=== PATIENT | male | born 1955 | race Caucasian/White ===

== ENCOUNTER 2017-06-10 16:52 | Inpatient (IN) | payer OTHER ==
[~2017-06-10] VITALS: Ht 175.3 cm; Wt 65.5 kg
[2017-06-10 17:13] VITALS: BP 116/65
--- NOTE | 2017-06-10 18:55 | IP CRISIS DIAG ASSESS PSYCH ---
See Addendum Diagnostic Assessment Basic Assessment Insurance Authorization: Insurance #1: Insurance name: CARLOS CANTOR Phone number: Policy number: [id number] Group number: Authorization number: [id number] 3 days 06/10/17-06/12/17 Primary Care Physician: Patient's PCP: Unknown PCP's Phone Number: Patient's Quote: "I'm done" Present Illness: Pt is a 61 yo male presenting to [facility] on Friday 06/09 with suicidal ideation to walk in front of a train and placed on a PEC. Pt was transfered to [facility] on 06/10 for a direct admission to [facility]. Pt reports he has been depressed for a long time. Unclear prior inpatient psychiatric hisory as pt reported to [facility] prior inpatient hospitalization but denied to this tech writer. Pt reports prior suicide attempt by drinking drano. Pt reports struggling with homelessness past 3 months and residing at [facility] since around [place]. Pt reports he worked in the [employer] for 36 yrs but was let go 3 yrs ago and since then hasn't been able to find any steady employment. Pt reports exhausting his 401k, IRAs and savings accts about 1 yr ago. He reports he was able to live with a friend for a [place] in the [place] but felt he was becoming too much of a burden and moved out. He reports then briefly living in his brother's garage in [place] until going to [facility] in March. He reports it is a dehumanizing experience and has significantly impacted his sense of hopelessness. Pt reports occasional etoh use and denies substance use. Pt reports beginning outpatient tx at [facility] 2 months ago and finds it helpful. He denies current medications and reports he generally is hesitant to take medications because of prior bad experiences. He was only able to identify predisone as a medication that gave him side effects (chest pain, anxiety). Pt reports he has been for many yrs and has no children. He reports having 3 brothers and 2 sisters as well as his mother but has minimal contact with them. He reports no arrest history. Pt presents as calm, cooperative, thoughtful and OX3. Patient's Address: [address] [place] [address] Other Phone Number: Who Do You Live With? Other (see notes) (homeless/[facility]) Feel Safe Where You Live? No Feel Safe in Your Relationship Yes Marital Status: Do You Have Children? No Primary Language? Slovak Language(s) Spoken At Home: Slovak Family/Informants Interviewed: collateral provided by Bert at [facility] [phone]. Consequences of Psych Med Use: pt reports no current medications. pt reports generally resistant/hesitant to taking medications. Lab Results: negative bal and urine tox screen Toxicology Screen Completed? Yes Results: negative Symptoms of Use: occasional beer; denies substances Past History Abuse/Trauma History Trauma History/Current Trauma: Denies Legal History Current Legal Status: none Have you ever been arrested? No Number of Arrests: 0 Psychosocial History Strengths/Capabilities: 36 yrs working in [employer] ; no prior inpatient psych hx; hx of independent housing. Psychiatric Treatment History Psych Treatment Psychiatric Treatment Yes Inpatient Treatment No (pt denies) Outpatient Treatment Yes Location of Treatment [facility] Reason for Treatment depression Dates of Treatment past 2 months Response to Treatment pt reports positive experience with SW Diagnosis by History: Depression Risk Factors: chronic/serious med cond., high anxiety/distress, isolate/no social support, lack of outcome concern, lives alone, male, limited support Substance Use/Abuse History Drug Use/Abuse minimum 12mo Hx Substances Used/Abused No Substance Abuse Treatment Substance Abuse Treatment Past Substance Abuse TX No Inpatient Treatment No Outpatient Treatment No Comments: pt reports occasional beer; denies substances Education History Highest Level of Education: high school/GED Preferred Learning Style: visual, auditory, experiential Current Mental Status Mental Status Orientation: Person, Place, Situation Affect: Depressed Speech: WNL Neuro-vegetative: Energy Decreased, Helpless, Hypersomnia Appearance Appearance- Dress/Hygiene: hospital scrubs; poorly groomed/disheveled. Behaviors Thought Process: WNL Thought Content: WNL Memory: WNL Insight: Fair SI/HI Risk Assessment - Minimum 6mo History- Past Suicidal Ideation/Attempts Yes Current Suicidal Ideation/Att Yes Past Homicidal Ideation/Att: No Current Homicidal Ideation/Attempts No Degree of Intent: Thoughts/No Intent Danger To: Self Gravely Disabled: Poor Impulse Control Risk Factors: chronic/serious med cond., high anxiety/distress, history of suicide atmpts, isolate/no social support, poor impulse control, lack of outcome concern, male, limited support Lethality Ratin Needs/Init TX Plan/Goals: Psychiatric Evaluation Medication Assessment Individual, group and family meetings Coordinated discharge planning AUDIT-C Questionnaire: AUDIT-C Questionnaire: Response Value ETOH use in the past year 2-4 times/month 2 # drinks typical/day 1 or 2 0 6 or > drinks per occasion Never 0 Total 2 DSM5/PS Stressors/Medical Prob Diagnosis' (DSM 5, Stressors, Medical): Unspecified Depression (F32.9) homeless unemployed financial progressive cataracts Current GAF: 20 Comments: Pt reports worsening depression past few months since becoming homeless; Pt reports recent thoughts of standing on the train tracks; pt reports feeling hopeless, helpless and worthless Addendum Addendum Case has been reviewed with Dr Whitehead. Due to computer issues she is not able to sign off at this time but will as soon as possible.
[2017-06-10 19:55] VITALS: BP 104/79
[2017-06-11 07:47] VITALS: BP 124/69
--- NOTE | 2017-06-11 09:13 | CPS PROVIDER INIT ASMT PSYCH ---
Psychiatric Admission Junior Account Manager's Note Reviewed: Yes Patient Seen and Examined: Yes Identifying Information: Pt is a 61 yo male presenting to [facility] on Friday 06/09 with suicidal ideation to walk in front of a train and placed on a PEC. Chief Complaint: Thoughts of suicide, pt was transfered to [facility] on 06/10 for a direct admission to [facility]. Pt reports he has been depressed for a long time. Reaction to Hospitalization: The patient did not seem to mind the hospitalization. History of Present Illness Onset of Illness: Pt reports he has been depressed for a long time. Unclear prior inpatient psychiatric hisory as pt reported to [facility] prior inpatient hospitalization but denied to this writer technical publications. Pt reports prior suicide attempt by drinking drano. Pt reports struggling with homelessness past [address] [facility] since around [place]. Pt reports he worked in the [employer] for 36 yrs but was let go 3 yrs ago and since then hasn 't been able to find any steady employment. Pt reports exhausting his 401k, IRAs and savings accts about 1 yr ago. He reports he was able to live with a friend for a while in the [place] but felt he was becoming too much of a burden and moved out. He reports then briefly living in his brother's garage in [place] until going to [facility] in March. He reports it is a dehumanizing experience and has significantly impacted his sense of hopelessness. Circumstances Leading to Admission: Patient presented [facility] emergency department reporting that he was having thoughts of suicide Problem(s) Justifying Need for Admission: Thoughts of suicide Past Psychiatric History Past Diagnosis(es)- if any: He reported that he was never on psychiatric medications. He reported that he may have had suicide attempts in the late , he does not remember the details. It is not clear whether the patient has received a formal psychiatric diagnoses in the past or not. Past Precipitating Factors- if any: Homelessness, unemployment, poverty - Include inpatient and outpatient treatment Treatment History: The patient reported that he did receive some outpatient therapy recently at [facility] in [place] He reported that he may have been hospitalized at [facility] in the late . For a suicide attempt History of Suicide Attempts or Gestures The patient was vague and not clear, he reports that he did not remember whether it was a suicide attempt or not but it was once and it was in the late 1980s Substance Abuse History: The patient denied abusing alcohol or using illicit substances Allergies: Coded Allergies: prednisone (Intermediate, claims to have had chest pain and anxiety 06/11/17) Home Med List: None - Include any medical condition(s) that may - impact the patient's recovery/remission Past Medical History: Denied major medical issues Past History Medical History Neurological: NONE EENT: NONE Cardiovascular: NONE Gastrointestinal: NONE Hepatic: NONE Renal: NONE Musculoskeletal: NONE Psychiatric: depression Endocrine: NONE Blood Disorders: NONE Cancer(s): NONE History of MRSA: No History of VRE: No History of CDIFF: No Pneumonia Vaccine Status: Unknown if ever received Influenza Vaccine Status Unknown if ever received Surgical History Surgical History: none Psychiatric Family/Social Hx Family History Psychiatric Illness: The patient reported that his sister has bipolar disorder Substance Use: The patient denied there is alcoholism or substance use in the family Suicides: Denied any suicides among his blood relations Social History Living Situation: The patient has been homeless and staying with friends for the past 6 years or so Significant Relationships (family/friends): Father is , he has been minimal interaction with his family of origin, he has been staying with friends on and off Education: High school diploma Vocation/Occupation: Currently unemployed, he last worked about 4 years ago Legal: No current legal entanglements Healthly Behaviors Screening Tobacco Screening Tobacco Use from ED Docu: Current Daily Use Daily Tobacco Use Amount/Type: => 5 Cigarettes daily - If tobacco counseling indicated - the following topics are required. - #1 Recognizing dangerous situations. - #2 Coping Skills. - #3 Basic information about quitting. Status of Tobacco Cessation Counseling: Counseling Refused Cessation Med Status Pt Refused Cessation Meds Alcohol Screening - ETOH screen POS if BAL >=80 or Audit-C>= M4/F3 Audit-C Score from Diag Assess: 2 Blood Alcohol Level: The patient came as a direct admission from [facility] current blood alcohol level unknown Alcohol Use Screening Results: Neg per Audit C &/or BAL - If ETOH counseling indicated - the following topics are required. - #1 Express concern about the patient's - drinking at unhealthy levels, include informing - of national norms for moderate drinking: - men <= 14 drinks/week, max 4 drinks/occasion - women <= 7 drinks/week, max 3 drinks/occasion - #2 Providing feedback, including linking alcohol to - negative physical effects (liver injury, hypertension) - negative emotional effects (relationship problems and - depression) - negative occupational consequences (reduced work - performance) - #3 Advising the patient to abstain from alcohol or - to drink below national norms for moderate drinking - (as listed above). Status of ETOH Use Counseling: N/A B/C NO ETOH Use Metabolic Screening - Screen if on a Neuroleptic Medication - Metabolic screening should include: - Blood Pressure, BMI, Glucose or Hgb A1c, & a - Lipid profile from within the past 365 days. Metabolic Screening ([X]) Not Applicable, patient not on a neuroleptic. OR () Patient on a neuroleptic(s) . Enter below results for Hemoglobin A1C, and lipid panel if obtained during the last 365 days. BMI: Blood Pressure: 124/69 Laboratory Results From [facility] (If applicable): Exam and Plan Mental Status Examination Ambulation Status: The patient had a steady gait Appearance: Unremarkable Attitude towards examiner: Cooperative and calm, at one point became irritable Psychomotor activity: Normal psychomotor activity Behavior: No abnormal or bizarre behaviors Quality of speech: Normal speech, not pressured, not slurred Affect: Constricted affect Mood: Depressed Suicidal Ideation: Reported thoughts of suicide today Homicidal Ideation: Denied thoughts of homicide Hallucinations: He denied hallucinations Paranoid/Delusional Material: He denied feeling paranoid. There were no delusions during the interview. Difficulties with thought organization: The patient was coherent, there were no difficulties with thought organization during the interview Insight: He seemed to have reasonable insight Judgment: He seems to have reasonable judgment Orientation: He was alert and oriented to time place and person Cognition: There were no deficits in attention and concentration. Memory Function: There were no short-term memory deficits noted Estimate of intellectual functioning: Average Assets/Strengths Patient Identified Assets/Strengths: The patient's seems to be honest and likable Impression/Plan Impression and Plan: 61-year-old white male who was transferred from [facility] for voicing thoughts of suicide. The patient has been homeless for the past 2-3 months. He has been staying at [facility]. It seems that he does not have significant psychiatric history, however he reported that he had 1 suicide attempt. Currently he reports feeling depressed but does not want medications at this point, he also reports that he is feeling hopeless about his life and he is still having some thoughts of suicide - Include all active medical diagnosis that require tx DSM 5 Diagnosis(es): Unspecified depressive disorder, most likely adjustment disorder with mixed anxiety and depression - Initial Tx Plan for Active Psych & Medical Conditions Treatment Plan: Inpatient psychiatric care with safety checks every 15 minutes Nursing and nurse's aids: Vital signs nursing assessments, dispensing medications, providing education about medication and symptoms Social work staff: Collateral information and aftercare plans/discharge plans Group therapists and activity therapists: Group and activity therapy and milieu therapy Psychiatrist: To assess patient's mental status on a daily basis and monitor medications including effects and side effects - Factors that would help patient function - in a less restrictive setting. Factors: Stable housing
[2017-06-11 11:55] VITALS: BP 105/62
--- NOTE | 2017-06-11 11:58 | History & Physical ---
General Information and HPI MD Statement: I have seen and personally examined SHRUTHI TURNER and documented this H&P. The patient is a 61 year old M who presented with a patient stated chief complaint of SI, depression. Source of Information: patient Exam Limitations: no limitations History of Present Illness: 61-year-old male with remote history of hypertension but did not take any medications, depression who was admitted to Inpatient Psychiatry with suicidal ideation and worsening depression. Patient has been out of employment from last 3 years and has been struggling with his financial situation. He is also homeless from last 3 months and has been staying in a halfway in [place]. Off -and-on he stayed with a friend but it is no permanent place for him to live. He's having difficult financial situation these days. He denies any aches or pains. Did mention that he's having some urinary urgency and weak stream of the urine. Denies any burning. Denies any pain. Denies any nausea, vomiting, diarrhea but did complain of some constipation. Does not want to take any stool softeners. Patient did want to hurt himself by coming in front of the train. He has had history of suicidal attempts in the past. Allergies/Medications Allergies: Coded Allergies: prednisone (Intermediate, claims to have had chest pain and anxiety 06/11/17) Past History Medical History Neurological: NONE EENT: NONE Cardiovascular: hypertension Gastrointestinal: NONE Hepatic: NONE Renal: NONE Musculoskeletal: NONE Psychiatric: depression Endocrine: NONE Blood Disorders: NONE Cancer(s): NONE History of MRSA: No History of VRE: No History of CDIFF: No Pneumonia Vaccine Status: Unknown if ever received Influenza Vaccine Status Unknown if ever received Surgical History Surgical History: none Past Family/Social History Family History Relations & Conditions if any MOTHER Relation not specified for: FH: stroke Review of Systems Review of Systems Constitutional: Reports: see HPI. EENTM: Reports: see HPI. Cardiovascular: Reports: see HPI. Respiratory: Reports: see HPI. GI: Reports: see HPI. Genitourinary: Reports: see HPI. Musculoskeletal: Reports: see HPI. Neurological/Psychological: Reports: see HPI. Exam & Diagnostic Data Last 24 Hrs of Vital Signs/I&O Vital Signs Date Time Temp Pulse Resp B/P B/P Pulse O2 O2 Flow FiO2 Mean Ox Delivery Rate 06/11 0747 90 124/69 06/10 1954 98.7 88 104/79 06/10 1713 98.7 87 116/65 Intake & Output 06/11 1600 06/11 0800 06/11 0000 Intake Total Output Total Balance Patient 145 lb Weight Physical Exam General Appearance Alert, Oriented X3, Cooperative, No Acute Distress Skin No Rashes HEENT PERRLA Neck Supple Cardiovascular Regular Rate, Normal S1, Normal S2 Lungs Clear to Auscultation Abdomen Normal Bowel Sounds, Soft, No Tenderness Neurological Cranial Nerves II through XII: intact Extremities No Edema Last 24 Hrs of Labs/Duong: No labs are done yet. Assessment/Plan Assessment: 61-year-old male with remote history of hypertension but not on any medications and currently blood pressure stable, history of depression admitted to Inpatient Psychiatry with suicidal ideation and a plan as well as worsening depression. Patient did have some urinary issues. I will check a urinalysis. I will also check his basic blood work. I will leave the psych management per psychiatry. Patient did not want to take any stool softeners at this time. He was encouraged to take more fiber. We will follow-up on his blood work. As Ranked By This Provider Problem List: 1. Depression 2. Suicidal ideation Miscellaneous Miscellaneous Documentation Attending Case Discussed With: Ellie Vasquez MD. Primary Care Physician: Unknown Patient sees these Specialists none Level of Patient Care: TEZ Herron
[2017-06-11 15:50] VITALS: BP 99/61
--- NOTE | 2017-06-11 15:55 | SOCIAL WORKER PROG NOTE PSYCH ---
Social Work Progress Note Progress Note Nirav reports being homeless and living at [facility] for the past 3 months. Prior to that he has a hx of staying with friends and with his Mother. That changed when his Mother sold the house and moved to [place] with his sister. He stated that the opportunity changed to stay with friends once he ran out of money. He has exhausted fdc savings and any other funds he may have had due to working in the past. He was in the [employer] business for 36 years. He hasn't worked in 4 years. He feels depressed and very hopeless about things. He said he has had depression for years. He reported 1 suicide attempt at least 20 years ago when he ingested Draino. He denies other attempts, but reports he has come close. Prior to admission he was having thoughts to jump on the train tracks. He was by the tracks and stated he then heard a voice that said "are you sure about that." He said he wasn't and decided to then get himself to the hospital. He isn't sure if it was someone he heard or a voice that came from within his head. He reports that he just can't see the future for himself anymore or feel motivated towards working on anything because he just doesn't see the point. He is currently connected to [facility] in [place]. He was seeing a clinician named Christiana for the past month- month and a half. He has been against taking medications, stating he has had bad experiences with medications in the past for different things. This is his first psychiatric hospitalization. I told him that he really should consider medication while he is here and that this is the best place to do that due to the monitoring and availability of the nurses and doctors. He denies any substance use and states that has never really been something he enjoys. He seems too prideful to involve his family in what is going on. He said several times that he is almost 62 years old and should be able to handle this. He said they don't know he's in the hospital and he doesn't want to involve them. I asked what his goal of being here was? He said "I need help." I told him that we would definetely assist him with helping his mood and SI. I shared that there are not many options for housing and he may need to return to a senior care situation. He stated he wasn't here because of that.. but then later stated he was not going to return to the street and that he couldn't do that.
[2017-06-11 16:23] LABS: ABSOLUTE BASOPHIL COUNT 0 /CUMM (0.0-0.2); ABSOLUTE EOSINOPHIL COUNT 0.5 /CUMM (0.0-0.7); ABSOLUTE LYMPH COUNT 1.7 /CUMM (1.2-3.4); ABSOLUTE MONOCYTE COUNT 1.2 /CUMM (0.10-0.60); BASOPHIL % 0.4 % (0.0-2.0); EOSINOPHIL % 4.6 % (0-5); GRANULOCYTE % 67.4 % (42.2-75.2); HEMATOCRIT 36.5 % (42-52); MEAN CORPUSCULAR HGB 32.5 PG (27.0-31.0); MEAN CORPUSCULAR VOLUME 98.6 FL (80.0-94.0); MEAN PLATELET VOLUME 8.4 FL (7.4-10.4); PLATELET COUNT 315 /CUMM (130-400); RBC DISTRIBUTION WIDTH 14.8 % (11.5-14.5); WHITE BLOOD CELL COUNT 10.4 /CUMM (4.8-10.8)
--- NOTE | 2017-06-11 18:39 | SOCIAL WORKER SOCIAL HX PSYCH ---
Florence Egan 06/11/17 1829: Social History Basic Assessment Insurance Authorization: Insurance #1: Insurance name: [employer] Phone number: Policy number: [id number] Group number: Authorization number: Curr Source of Income/Entitlements: No source of income Primary Care Physician: Patient's PCP: Unknown PCP's Phone Number: Present Problem: The pt is a 61 year old male presenting in the inpatient unit due to + si. Pt reports he has been depressed for sometime and the symptoms have progressively worsened. The pt states he has a plan to jump in front of a train and will do so if discharged from hospital. The pt presents disheveled in hospital scrubs, with depressed mood and affect, the pt's speech was soft, and thoughts tangential. The pt required redirection to answer questions but was calm and cooperative. The pt reports +SI/AH/VH and denies HI. The pt reports he sometimes hears a woman's voice asking "are you sure about this", see's people out of the corner of his eye who are never there, and sometimes sees his father. The pt reports long hx of depression, denies mental health tx despite medical records from prior day. The pt reports his stressors include no income, lack of family supports, and being homeless. The pt states that he feels hopeless but has agreed to participate in groups and does want to feel better. Primary Language? Nepali Language(s) Spoken At Home: Nepali Living Situation Other Living Arrangement: homeless in correction Feel Safe Where You Are Living No Feel Safe in Relationships? Yes Allergies - Coded Allergies: prednisone (Intermediate, claims to have had chest pain and anxiety 06/11/17) Consequences of Psych Med Use: Pt reports no hx of psychotropic medication Past History Past Medical History Neurological: NONE EENT: NONE Cardiovascular: hypertension Gastrointestinal: NONE Hepatic: NONE Renal: NONE Musculoskeletal: NONE Psychiatric: depression Endocrine: NONE Blood Disorders: NONE Cancer(s): NONE /Family History Place/Country of Origin: [place], [place] Childhood Family Constellation: Pt lived with Mother, Father, 3 brothers and 2 sisters Primary Childhood Caretakers: Pt reports no caregiver and states "I was always independent" Family Life During Childhood: "normal" DCF Involvement? No Mother's Age (Current/): 84 Relationship w/Mother: Pt reports he used to have a positive relationship with mom and states they are no longer close due to a "falling out" Father's Age (Current/): 68 () Relationship w/Father: "very close" Any Sibling(s)? Yes Sibling's Gender(s)/Age(s): male Sibling 1: (61 - Twin), male Sibling 2: (61 - Twin), male Sibling 3: (53), female Sibling 4: (57), female Sibling 5: (55) Relationship w/Sibling(s): "I dont have one, they don't know I am here" Relationship w/Friends: Pt reports he does not have any friends Family Psych/Sub Abuse/Add Hx: drug of choice Other Comments: Pt reports his sister struggled with substance abuse and maternal aunt struggled with alcohol Abuse/Trauma History Trauma History/Current Trauma: Denies Legal History Legal Guardian/Address/Phone: n/a Current Legal Status: none Pending Court Dates: n/a Have you ever been arrested No Number of Arrests: 0 Hx of Juvenile Legal Charges? Yes If Yes: trespassing, no charges Hx of Adult Legal Charges? No Civil Proceedings: n/a Domestic Relations Court: n/a Child Protective Serv Involvmnt n/a Payroll Accounting Specialist n/a Psychosocial History Primary Support System: mother Strengths/Capabilities: 36 yrs working in [employer] ; no prior inpatient psych hx; hx of independent housing. Weaknesses: limited supports, no current housing or income Physical Limitations (Interventions): n/a Last Physical: unknown History of Seizures? No History of Blackouts? No ADL Limitations: n/a Colbert/Social/Peer Relations pt denies any social relationships Meaningful Activities: Pt denies any hobbies or interests. Pt reports in the past he enjoyed being outside, time with family, and music Childhood Druze: Jewish Current Synagogue Affiliation: Jewish Is Spirituality Important to You? Pt reports spirituality is important and states he would like to return to cheondoism Patient's Ethnicity: Kiswahili, Qatari, Kiswahili Cultural/Ethnic Issues: n/a Are There Developmental Issues? No Milestones Achieved: fine motor, gross motor Psychiatric Treatment History Psych Treatment Inpatient Treatment No (pt denies) Outpatient Treatment Yes Location of Treatment [facility] Reason for Treatment depression Dates of Treatment past 2 months Response to Treatment pt reports positive experience with SW Precipitating Factors: unknown Current Rib Cutter: [facility] Treatment of Prior Episodes: past 2 months Diagnosis: Depression Psychodynamic Issues: PT lost his job, is homeless, no income, and has little supports Risk Factors: chronic/serious med cond., high anxiety/distress, history of suicide atmpts, isolate/no social support, poor impulse control, lack of outcome concern, male, limited support Substance Use/Abuse History Drug Use/Abuse Substance Used/Abused Alcohol First Use 15 Last Used unknown How much used/taken pt reports social drinker, details unknown How often "now and then, when I wanted to" For how long unknown Route of use oral Have Had Periods of Sobriety? No Explain: pt denies substance abuse Relapse History? No Explain: pt denies substance abuse Have You Ever Attended AA? No Do You Attend AA Currently? No Do You Have a Sponsor? No Other Community Resources Used: n/a Symptoms of Use: occasional beer; denies substances Substance Abuse Treatment Substance Abuse Treatment Inpatient Treatment No Outpatient Treatment No Sexual History Sexually Active No Sexual Orientation Heterosexual Education History Highest Level of Education: high school/GED Highest Grade Completed: high school Vocational Year Completed: n/a College Degree/Major: n/a Other Degree(s): n/a Preferred Learning Style: visual, auditory, experiential HX of Learning Difficulties: None reported Barriers to Learning: None reported Special Communication Needs: None reported Employment History Employment Unemployed Not in Labor Force: Disabled Vocation/Occupational Hx: 36 years in the [employer] No. of Jobs in Last 5 Years: 1 Attendance: Above average Performance: Exemplary Comments: pt reports working at [employer] over the past 36 years. The pt reports he enjoys his job and has always been a valuable employee. Pt reports unfair severance from last job and feels it was unjust. History Have You Been in The ? No Current Mental Status Problem List: 1. Depression 2. Suicidal ideation Mental Status Orientation: Person, Place, Situation Affect: Depressed Speech: WNL Neuro-vegetative: Concentration Poor, Energy Decreased, Helpless, Hypersomnia, Loss of Interest Appearance Appearance- Dress/Hygiene: hospital scrubs; poorly groomed/disheveled. Behaviors Thought Process: Tangential Thought Content: Auditory Hallucinations, Visual Hallucinations Memory: WNL Insight: Poor SI/HI Risk Assessment Past Suicidal Ideation/Attempts Yes Current Suicidal Ideation/Att Yes Past Homicidal Ideation/Att: No Current Homicidal Ideation/Attempts No Degree of Intent: States Intent Danger To: Self Gravely Disabled: Lack of Insight, Poor Impulse Control, Poor Judgment Risk Factors: Chronic/serious med cond, High Anxiety/Distress, Hx of suicide attempt(s), Isolated/no social suppor, Lack of concern outcome, Male, Poor impulse control Lethality Ratin - Conclusion and Recommendations for treatment - and discharge planning Summary: Pt remains a danger to self and requires inpatient level of care. The pt has little insight and is a poor historian. The pt will remain inpatient to monitor for safety, medication management, and support with outside services. Claus Mayfield 06/17/17 0948: Current Mental Status - Conclusion and Recommendations for treatment - and discharge planning
[2017-06-11 19:51] VITALS: BP 118/60
[2017-06-12 07:48] VITALS: BP 132/71
--- NOTE | 2017-06-12 12:09 | CP SOUTH PROGRESS NOTE PSYCH ---
Psych (Inpt) Progress Note Progress Note Laboratory Tests 06/11 06/11 1741 1453 Chemistry Sodium (137 - 145 mmol/L) 141 Potassium (3.5 - 5.1 mmol/L) 4.4 Chloride (98 - 107 mmol/L) 101 Carbon Dioxide (22 - 30 mmol/L) 27 Anion Gap (5 - 16) 12 BUN (9 - 20 mg/dL) 23 H Creatinine (0.7 - 1.2 mg/dL) 0.7 Estimated GFR (>60 ml/min) > 60 BUN/Creatinine Ratio (7 - 25 %) 32.9 H CBC w Diff NO MAN DIFF REQ WBC (4.8 - 10.8 /CUMM) 10.4 RBC (4.70 - 6.10 /CUMM) 3.70 L Hgb (14.0 - 18.0 G/DL) 12.1 L Hct (42 - 52 %) 36.5 L MCV (80.0 - 94.0 FL) 98.6 H MCH (27.0 - 31.0 PG) 32.5 H MCHC (33.0 - 37.0 G/DL) 33.0 RDW (11.5 - 14.5 %) 14.8 H Plt Count (130 - 400 /CUMM) 315 MPV (7.4 - 10.4 FL) 8.4 Gran % (42.2 - 75.2 %) 67.4 Lymphocytes % (20.5 - 51.1 %) 16.5 L Monocytes % (1.7 - 9.3 %) 11.1 H Eosinophils % (0 - 5 %) 4.6 Basophils % (0.0 - 2.0 %) 0.4 Absolute Granulocytes (1.4 - 6.5 /CUMM) 7.0 H Absolute Lymphocytes (1.2 - 3.4 /CUMM) 1.7 Absolute Monocytes (0.10 - 0.60 /CUMM) 1.2 H Absolute Eosinophils (0.0 - 0.7 /CUMM) 0.5 Absolute Basophils (0.0 - 0.2 /CUMM) 0 Urines Urine Color (YEL,AMB,STR) YEL Urine Clarity (CLEAR) CLEAR Urine pH (5.0 - 8.0) 6.0 Ur Specific [place] (1.001 - 1.035) >= 1.030 Urine Protein (NEG,<30 MG/DL) NEG Urine Ketones (NEG) TRACE H Urine Nitrite (NEG) NEG Urine Bilirubin (NEG) NEG Urine Urobilinogen (0.1 - 1.0 EU/dl) 1.0 Ur Leukocyte Esterase (NEG) NEG Ur Microscopic EXAM NOT REQUIRED Urine Hemoglobin (NEG) NEG Urine Glucose (N MG/DL) NEG Vital Signs Date Time Temp Pulse Resp B/P 06/12 0748 97.5 89 132/71 06/11 1951 98.3 93 118/60 06/11 1550 100 99/61 Nirav is a 61-year-old single white male admitted via [facility] with suicidal ideation to walk in front of a train and placed on a PEC. Pt reports he has been depressed for a long time. Pt reports he has been depressed for a long time. Pt reports struggling with homelessness past 3 months and residing at [facility] since around [place]; worked in the [employer] for 36 years but was let go 3 years ago and since then hasn't been able to find any steady employment. He reports then briefly living in his brother's garage in [place] until going to [facility] in March. He reports it is a dehumanizing experience and has significantly impacted his sense of hopelessness. Mental Status Examination: Nirav was alert and oriented. The patient had a steady gait; Appearance: Unremarkable; He was marginally cooperative, some irritability /passive hostility; Normal psychomotor activity; No abnormal or bizarre behaviors; Normal speech, not pressured, not slurred; Mood: Depressed, reported thoughts of suicide today; Denied thoughts of homicide; He denied hallucinations; He denied feeling paranoid. There were no delusions during the interview. The patient was coherent, there were no difficulties with thought organization during the interview; He seemed to have reasonable insight; He seems to have reasonable judgment; He was alert and oriented to time place and person; There were no deficits in attention and concentration.; There were no short-term memory deficits noted Assessment: 61-year-old white male who was transferred from [facility] for voicing thoughts of suicide. The patient has been homeless for the past 2-3 months. He has been staying at [facility]. It seems that he does not have significant psychiatric history, however he reported that he had 1 suicide attempt. Currently he reports feeling depressed but does not want medications at this point, he also reports that he is feeling hopeless about his life and he is still having some thoughts of suicide Diagnoses: Unspecified depressive disorder, most likely adjustment disorder with mixed anxiety and depression Treatment Plan: Start Sertraline (Zoloft) 25 mg today, then, 50 mg tomorrow and thereafter QA Inpatient psychiatric care with safety checks every 15 minutes Nursing and Nurse's Aides: Vital signs nursing assessments, dispensing medications, providing education about medication and symptoms CASE MANAGER SPECIALIST: Collateral information and aftercare plans/discharge plans Group therapists and activity therapists: Group and activity therapy and milieu therapy MD/Psychiatrist: To assess patient's mental status on a daily basis and monitor medications including effects and side effects
[2017-06-12 12:22] VITALS: BP 121/63
--- NOTE | 2017-06-12 14:51 | SOCIAL WORKER PROG NOTE PSYCH ---
Social Work Progress Note Progress Note This repairer typewriter explained crisis and respite to the pt, and asked him to sign a release, he states he is only here for mental health, and lived in a prison, I offered again what crisis and respite is and explained the release of information, Pt states he was confused, and didn't understand. I suggested we re visit this idea in a day or two. He agreed.
[2017-06-12 15:36] VITALS: BP 118/53
--- NOTE | 2017-06-12 17:02 | SOCIAL WORKER PROG NOTE PSYCH ---
Social Work Progress Note Progress Note Met with Nirav who reported he was tired. Said he slept okay. Started Zoloft today. Seems cautious about trying medication, but willing to try it. Reports continued thoughts of suicide, but feels safe on the unit. Went to groups today and reports it was good to connect with others. Talked about his depression through the years. Asked how his depression effects him today? He said it "preoccupies what I need to do." He isn't motivated and he doesn't look ahead. He said he is not one that plans ahead at all, because he doesn't know if he will be here tomorrow. He stated he will kill himself. I emphasized that if he keeps telling himself that he will that isn't helping combat that behavior. He continues to tell me that he is not going back to a nursing home and the environment is not healthy for his mental health. Continued to explore if friends or family can help. He denies there is any help.
[2017-06-12 20:14] VITALS: BP 143/84
[2017-06-13 07:33] VITALS: BP 134/73
--- NOTE | 2017-06-13 08:30 | CP SOUTH PROGRESS NOTE PSYCH ---
Psych (Inpt) Progress Note Progress Note Vital Signs Date Time Temp Pulse B/P FiO2 06/13 0733 97.4 76 134/73 06/12 2013 98.3 92 143/84 06/12 1536 92 118/53 06/12 1222 79 121/63 Nirav is a 61-year-old single white male admitted via [facility] with suicidal ideation to walk in front of a train, reported he has been depressed for a long time, struggling with homelessness past 3 months (was residing at [facility] since around [place]); worked in the [email or web address] for 36 years but was let go 3 years ago and since then hasn't been able to find any steady employment. He reports then briefly living in his brother's garage in [place] until going to [facility] in March. He reports it is a dehumanizing experience and has significantly impacted his sense of hopelessness. Mental Status Examination: Nirav was alert, marginally cooperative, less irritability /passive hostility today; Normal psychomotor activity; no abnormal or bizarre behaviors; normal speech, not pressured, not slurred; Still depressed with thoughts of suicide; denied thoughts of homicide; He denied hallucinations; He denied feeling paranoid but appeared guarded and suspicious about my questions, even neutral questions. There were no specific delusions ; coherent/no difficulties with thought organization oriented to time place and person; no deficits in attention and concentration, no short-term memory deficits noted Assessment: Currently he reports feeling depressed, hopeless, and still struggling with thoughts of suicide tolerated sertraline well (so far) Diagnoses: Unspecified depressive disorder, most likely adjustment disorder with mixed anxiety and depression ? subtle paranoia or subtle psychosis ? Treatment Plan: Continue Sertraline (Zoloft) 50 mg QAM Continue PRN Trazodone for sleep Inpatient psychiatric care with safety checks every 15 minutes Nursing and Nurse's Aides: Vital signs nursing assessments, dispensing medications, providing education about medication and symptoms SURG NURSE: Collateral information and aftercare plans/discharge plans Group therapists and activity therapists: Group and activity therapy and milieu therapy MD/Psychiatrist: To assess patient's mental status on a daily basis and monitor medications including effects and side effects
[2017-06-13 11:54] VITALS: BP 144/72
--- NOTE | 2017-06-13 14:44 | SOCIAL WORKER PROG NOTE PSYCH ---
Social Work Progress Note Progress Note Completed P online Review - check web
[2017-06-13 15:57] VITALS: BP 114/67
--- NOTE | 2017-06-13 16:37 | SOCIAL WORKER PROG NOTE PSYCH ---
Social Work Progress Note Progress Note Nirav shared that he was keeping busy today and that the distractions are a good escape from his negative thoughts. He told me that the Focus Group was good and that he shared in group about things he was going through and it felt good. He said he got positive feedback from group members. He was feeling comfortable enough to share, which he didn't expect. Talked about not being ready to reach out to family at that point, but he will when he's ready. Asked what his hesitation is about? He said he is afraid of their reaction. He also doesn't feel ready to share why he is here and that he was thinking of ending his life. Seems to be tolerating the Zoloft without issue. Talked about working on changing negative thoughts to positive which then impact our feelings and behaviors.
[2017-06-13 20:09] VITALS: BP 125/70
[2017-06-14 07:49] VITALS: BP 117/68
[2017-06-14 12:34] VITALS: BP 118/63
--- NOTE | 2017-06-14 13:21 | CP SOUTH PROGRESS NOTE PSYCH ---
Psych (Inpt) Progress Note Progress Note Include the following elements, when applicable: Involvement in the active treatment of the patient with behavioral observations of the patient and the patient's response to the treatment. Review of the ongoing treatment process in the context of the treatment plan. Indication of how multi-disciplinary staff members are carrying out the treatment plan. Plans for future interventions and recommendations for revision of the treatment plan. Liaison with other physicians/providers. Progress Note: Chart reviewed, progress discussed with nursing staff. Interviewed patient this morning. Pleasant, cooperative, though it did remain somewhat guarded. Reports mood remains depressed, continues to have suicidal ideation without any intent or plan to harm himself on the unit. My questioning regarding AVH was surprisingly answered with a lengthy discussion of the concept of "well, if we hear a voice, how can we ever know that nobody is in the other room saying something?". He denies HI. Denies any medication side effects. Vital signs are within normal limits. No new laboratory results today. Mental status exam: man, appears older than stated age, well groomed ( just showered this morning), no psychomotor agitation or retardation, fair eye contact. Speech was within normal limits, mood was "pretty depressed ", affect was constricted, non-labile. Thought process was in general logical and linear, content with vague SI without intent or plan, denies HI, reports possible perceptual disturbances, wasn't able to get a straight answer from him, his cognition appeared grossly intact, and his insight and judgment were fair. A/P: Mood continues to slowly improve. Remains perseverative regarding circumstances of life. Does have some unusual thinking with regard to perceptual disturbances. Will continue present management as per primary team.
[2017-06-14 16:03] VITALS: BP 107/58
[2017-06-14 19:36] VITALS: BP 129/67
[2017-06-15 07:50] VITALS: BP 135/67
[2017-06-15 12:12] VITALS: BP 119/59
--- NOTE | 2017-06-15 13:24 | CP SOUTH PROGRESS NOTE PSYCH ---
Psych (Inpt) Progress Note Progress Note Include the following elements, when applicable: Involvement in the active treatment of the patient with behavioral observations of the patient and the patient's response to the treatment. Review of the ongoing treatment process in the context of the treatment plan. Indication of how multi-disciplinary staff members are carrying out the treatment plan. Plans for future interventions and recommendations for revision of the treatment plan. Liaison with other physicians/providers. Progress Note: Chart reviewed, progress discussed with nursing staff. Interviewed patient this morning. Again, pleasant, cooperative, though somewhat guarded and odd. Reports mood remains depressed, continues to have suicidal ideation without any intent or plan to harm himself on the unit. "They don't just disappear because it's the weekend!" He denies HI. Denies any medication side effects. Vital signs are within normal limits. No new laboratory results today. Mental status exam: man, appears older than stated age, well groomed, no psychomotor agitation or retardation, fair eye contact. Speech was within normal limits, mood was "still pretty depressed ", affect was constricted, non- labile. Thought process was ruminative at times, content with vague SI without intent or plan, denies HI, reports possible perceptual disturbances, again wasn' t able to get a straight answer from him, his cognition appeared grossly intact, and his insight and judgment were fair. A/P: Mood continues to slowly improve. Remains ruminative regarding circumstances of life. Does have some unusual thinking with regard to perceptual disturbances. Will continue present management as per primary team.
[2017-06-15 16:07] VITALS: BP 106/60
[2017-06-15 19:50] VITALS: BP 127/62
[2017-06-16 07:37] VITALS: BP 112/57
--- NOTE | 2017-06-16 10:28 | SOCIAL WORKER PROG NOTE PSYCH ---
Social Work Progress Note Progress Note Dr. Stuart and I met with Nirav together this morning. Nirav stated he had an okay weekend. Asked him about the report of him suicidal this morning? He said yes, he remains suicidal. He stated his mood was okay. Explored more about this. Asked what the likelyhood would be of him acting on these thoughts should he leave the hospital? He said he probably would. Continues to have thoughts to jump in front of a train. Reasons for his suicidal thoughts seem to be related to his feelings of hopelessness and being generally "unhappy." He feels there is no way out of his current situation. He repeatedly said he is here for help and doesn't know what to do. We talked about the inpatient setting being more of brief acute setting and then normally people transition to outpatient services and do an IOP. Talked about what that was. Discussed housing options being limited and that he really needs to complete a CAN Assessment and schedule one through 211 soon. Discussed [facility]. He seemed a little confused on what to do. We suggested that he proceed with agreeing to the referral so that he has a place to reside temporarily once he leaves the hospital. He signed a release. [place] would be his preference, since he is more familiar with the area.
--- NOTE | 2017-06-16 12:05 | CP SOUTH PROGRESS NOTE PSYCH ---
Psych (Inpt) Progress Note Progress Note Vital Signs Date Time Temp Pulse B/P 06/16 0637 97.1 74 112/57 06/15 1950 98.3 90 12706/15 1607 85 10606/15 1212 75 119/59 Mental status exam: no psychomotor agitation or retardation, fair eye contact. Speech was within normal limits, mood was "depressed ", affect was constricted, non-labile. Thought process was ruminative at times, still reporting thoughts of suicide denies HI, reports possible perceptual disturbances, again wasn't able to get a straight answer from him, his cognition appeared grossly intact, insight and judgment were fair. Assessment: Remains ruminative snf reporting thoughts of suicide Plan: Continue Sertraline HCl 100 MG Q 8:00 AM PO PO 0800 Trazodone HCl 50 MG AT BEDTIME NEED.. 06/105 AC PO Vital Signs Date Time Temp Pulse Resp B/P B/P Pulse O2 O2 Flow FiO2 Mean Ox Delivery Rate 06/16 0637 97.1 74 11257 06/15 1950 98.3 90 12706/15 1607 85 10660 06/15 1212 75 119/59 Sertraline HCl 100 MG 0800
[2017-06-16 12:12] VITALS: BP 136/76
[2017-06-16 16:10] VITALS: BP 103/63
[2017-06-16 19:48] VITALS: BP 103/71
[2017-06-17 07:41] VITALS: BP 123/66
--- NOTE | 2017-06-17 09:04 | CP SOUTH PROGRESS NOTE PSYCH ---
Psych (Inpt) Progress Note Progress Note Current Medications Sig/Ene Start time Last Medication Dose Route Stop Time Status Admin Acetaminophen 650 MG Q6P PRN 06/10 2100 AC PO Diphenhydramine HCl 50 MG Q6P PRN 06/10 2044 AC PO Diphenhydramine HCl 50 MG Q6P PRN 06/10 2044 AC IM Guaifenesin 10 ML Q6P PRN 06/16 2000 AC PO Haloperidol 5 MG Q6P PRN 06/10 2044 AC PO Haloperidol 5 MG Q6P PRN 06/10 2044 AC IM Lorazepam 2 MG Q6P PRN 06/10 2044 AC PO Lorazepam 2 MG Q6P PRN 06/10 2044 AC IM Magnesium Hydroxide 30 ML AT BEDTIME NEED.. 06/10 2044 AC PO Sertraline HCl 100 MG 06/17 0800 AC 06/17 PO 0824 Sertraline HCl 50 MG 06/13 1200 DC 06/16 PO 0800 Trazodone HCl 50 MG AT BEDTIME NEED.. 06/10 2044 AC PO Vital Signs Date Time Temp Pulse Resp B/P B/P Pulse O2 O2 Flow FiO2 Mean Ox Delivery Rate 06/17 0741 96.9 73 123/66 06/16 1948 98.4 89 103/71 06/16 1610 81 103/63 06/16 1212 73 136/76 Mental status exam: The patient was alert. Patient was oriented to time place and person. No psychomotor agitation or retardation The patient showed good eye contact. Speech was within normal limits, mood was "depressed ", affect was constricted, non-labile. Thought process was ruminative at times, The patient still reporting thoughts of suicide The patient denies HI, Patient was observed in the common area smiling to himself but he denies hallucinations/perceptual disturbances, The patient is guarded his cognition appeared grossly intact, insight and judgment were fair. Assessment: The patient is a 61-year-old single white male who was admitted because of thoughts of suicide Ms. showing some improvement in his mood and outlook but reports that he continues to have thoughts of suicide Plan: Continue Sertraline HCl 100 MG Q 8:00 AM Inpatient psychiatric care with 15 minute checks for safety reasons and Nursing assessments vital signs and patient education Aftercare planning and collateral information by social work Psychiatrist to meet with the patient daily to evaluate mental status and monitor medications
--- NOTE | 2017-06-17 11:39 | SOCIAL WORKER PROG NOTE PSYCH ---
Social Work Progress Note Progress Note Met with Nirav to get him to sign off on the referral to [facility]. We reviewed the discharge agreement again, stating he would need to get a CAN Assessment and work towards getting a bed at a f[facility]. He continues to be very hesitant, but agreeable. I also spoke with him about signing in to [facility] voluntarily. He agreed to do so, but worried it would effect his length of stay here. I reminded him that he is working with the team on a plan and it doesn't matter if he is voluntary or PEC, but voluntary just means that he is agreeable to be here. Continues to talk about having had depression for years, but was never in a place to understand it or work on it. Signed a release for Christiana- clinician at [facility] in [place]. He encouraged me to call her and get his Brother Vincenzo's contact info. Called Christiana (clinician) and left a voicemail. She returned the call and I was able to get additional collateral from her. She said he was a referral to her from [facility] and that the first time she met with his was 04/08. Since that time she has seen him a couple of times. She reports that he has gone to [facility] and [facility] due to SI and not being able to contract for safety. She reports/ validates alot of the same information that he has shared here. She said he is reluctant about involving family and he seems unwilling/ unmotivated to do anything about his current situation. He was prescribed Zoloft from [facility], but never filled it. He also missed an intake at [facility]. She reports that he has a car, but is reluctant to share that with people. She doesn't think it is legally registered. She did provide his Brother Vincenzo's phone number- [phone]. She said she would like to see him do IOP at this point, due to the number of ER visits he has had recently. Her contact info is Christiana Castellanos at [phone].
[2017-06-17 12:20] VITALS: BP 128/73
--- NOTE | 2017-06-17 14:21 | SOCIAL WORKER PROG NOTE PSYCH ---
Social Work Progress Note Progress Note SHRUTHI TURNER [id number] 1955 SHRUTHI TURNER [id number] Pended Authorization # Client Authorization # Type of Request [id number] CONCURRENT Date of Admission/ Start of Services Requested From Submission Date 06/10/2017 06/17/2017 06/17/2017
[2017-06-17 15:52] VITALS: BP 122/64
[2017-06-17 20:02] VITALS: BP 112/55
[2017-06-18 07:28] VITALS: BP 135/76
--- NOTE | 2017-06-18 08:10 | CP SOUTH PROGRESS NOTE PSYCH ---
Psych (Inpt) Progress Note Progress Note Vital Signs Date Time Temp Pulse B/P Pulse FiO2 Ox 06/18 0728 97.0 75 135/76 06/17 2001 97.8 81 112/55 06/17 1552 74 122/64 06/17 1220 73 128/73 Mental status exam: The patient was alert. Patient was oriented to time place and person. No psychomotor agitation or retardation. The patient showed good eye contact. Speech was within normal limits, mood was "depressed ", affect was constricted, non-labile. Nirav was coherent, there was no convincing evidence of a major thoughts disorder. The patient still reporting thoughts of suicide, he denied violent thoughts or HI, Thi denied hallucinations/perceptual disturbances, less guarded Nirav's cognition appeared grossly intact, insight and judgment were fair. Assessment: Nirav David is a 61-year-old single White male who was admitted because of thoughts of suicide Ms. showing some improvement in his mood and outlook but reports that he continues to have thoughts of suicide. Plan: Continue Sertraline HCl 100 MG Q 8:00 AM Continue inpatient psychiatric care with 15 minute checks for safety reasons and Continue nursing assessments vital signs and patient education Continue aftercare planning and collateral information by social work Psychiatrist to meet with the patient daily to evaluate mental status and monitor medications monitor medications
[2017-06-18 12:22] VITALS: BP 133/66
--- NOTE | 2017-06-18 14:31 | SOCIAL WORKER PROG NOTE PSYCH ---
Social Work Progress Note Progress Note Employment Services Director met with Nirav this afternoon. He reported to be feeling "okay". He rated his depression as a 6/10 and that he was not experiencing any SI at the point of the conversation with this senior medical writer, but that he had had intermittent SI throughout the day. He stated that he feels that his mood is improving only slightly and attributed this improvement to the fact that he is "trying". He described this improvement stating, "I am not at the point where I can say that there's still no way out yet". Employment Services Director asked him to clarify what he meant by this. Nirav stated that he felt that he was beginning to work through his depression by going to groups and engaging, but that the uncertainty of the future still made him feel unsure about whether he would "hit rock bottom again ". Nirav spoke glowingly about the care he was receiving here and about the aesthetics of the unit. He stated, "I never knew that this kind of help was available, or that a psych kern would be so nice". He also felt regretful that he had not reached out for help sooner. He feels as though he could have "saved a lot" if he had gotten "this kind of care sooner". He stated that he realizes now that he has been depressed for years, stating that he had terrible feelings of inadequacy 20+ years ago. He clarified what he meant by "saved a lot", stating that he feels his depression contributed to his current financial problems and homelessness. Nirav did not dwell on these regrets of not reaching out for help sooner, stating "it is water under the bridge at this point". Employment Services Director faxed a referral to [facility] this morning. Employment Services Director called Dionne Olmos at [facility] with the intention of doing a screening for Nirav. As of the time of this note (3:57), Dionne had not called back.
[2017-06-18 15:53] VITALS: BP 117/59
[2017-06-18 19:49] VITALS: BP 108/63
[2017-06-19 07:42] VITALS: BP 101/59
--- NOTE | 2017-06-19 11:15 | SOCIAL WORKER PROG NOTE PSYCH ---
Social Work Progress Note Progress Note Inorganic Chemistry Teacher spoke with Severiano at [facility] in [place]. She asked that Nirav schedule a JANY assessment. She stated that once he had an appointment for a JANY assessment, that or Mariana Medina could call back to do a screening with Severiano for their program. spoke with Nirav this afternoon. He presented as somewhat more depressed than yesterday. He stated that he was feeling "off" and tired today. Nirav stated that he thought maybe his fractured sleep, medications, or "just his depression " were perhaps making him "feel off". He rated his depression as a 6 out of 10 and his anxiety as a 5 out of 10. told Nirav about needing to have an appointment for a JANY assessment in order for [facility] to screen him. Nirav stated that he felt that he was not ready to leave yet but that he also "did not want to slow down the process". He thanked for keeping him abreast of the future plans.
--- NOTE | 2017-06-19 12:25 | CP SOUTH PROGRESS NOTE PSYCH ---
Psych (Inpt) Progress Note Progress Note The treatment team discussed the patient's progress and treatment plan, including aftercare plans. The treatment team included: Nursing staff, social work staff, group and activity therapy staff, and psychiatrist. Vital Signs Date Time Temp Pulse B/P 03 0742 97.9 91 101/59 06/18 1949 96.8 94 108/63 06/18 1553 77 117/59 Mental Status Exam: Nirav was alert & oriented to time place and person. Nirav exhibited normal psychomotor activity/no psychomotor agitation or retardation. The patient showed good eye contact. Speech was within normal limits, Nirav described his mood as "depressed ", affect was constricted, non-labile. Nirav was coherent, there was no convincing evidence of a major thoughts disorder. The patient still reporting thoughts of suicide, he denied violent thoughts or HI, Nirav denied hallucinations/perceptual disturbances, less guarded Nirav's cognition appeared grossly intact, insight and judgment were fair. Summary & Risk Assessment: Nriav David is a 61-year-old single White male who was admitted to the inpatient psychiatric unit at [facility] on 06/10/2017 because of thoughts of suicide Ms. showing some improvement in his mood and outlook but reports that he continues to have thoughts of suicide. The identified risk factors for suicide, and/or violence or homicide: Patient voices thoughts of suicide Patient is homeless Protective and risk mitigating factors for suicide, and/or violence or homicide: The patient has not been abusing alcohol or substances The patient does not report any command hallucinations The patient does not have a terminal illness The patient does not suffer from chronic severe pain The patient's reported thoughts of suicide seem to be related to material gain in relation to the patient's homelessness, therefore these reported suicidal thoughts of suicide would be taken with healthy dose of suspicion Plan: Continue Sertraline HCl 100 MG Q 8:00 AM Continue inpatient psychiatric care with safety checks every 15 minutes Continue nursing assessments vital signs and patient education Continue aftercare planning and collateral information by social work Psychiatrist to meet with the patient daily to evaluate mental status and monitor medications
[2017-06-19 12:42] VITALS: BP 118/65
[2017-06-19 16:08] VITALS: BP 108/64
[2017-06-19 19:38] VITALS: BP 129/57
--- NOTE | 2017-06-20 07:48 | CP SOUTH PROGRESS NOTE PSYCH ---
Psych (Inpt) Progress Note Progress Note Vital signs: Pulse 69/min; temperature 97.1F; blood pressure 128/68 mmHg Mental Status Exam: Nirav was alert & oriented to time place and person. The patient showed good eye contact. Speech was within normal limits. Nirav exhibited normal psychomotor activity/no psychomotor agitation or retardation. Although Nirav described his mood as "okay", he continues to report thoughts of suicide, . Nirav was coherent , there was no convincing evidence of a major thoughts disorder. he denied violent thoughts or HI. Nirav denied hallucinations. less guarded. Nirav's cognition appeared grossly intact, insight and judgment were fair. Summary & Risk Assessment: Nirav David is a 61-year-old single White male who was admitted to the inpatient psychiatric unit at [facility] on 06/10/2017 because of thoughts of suicide. He continues to have thoughts of suicide. The identified risk factors for suicide, and/or violence or homicide: Patient voices thoughts of suicide (although these must be taken with healthy dose of suspicion since the patient may be malingering this part) Patient is homeless. Protective and risk mitigating factors for suicide, and/or violence or homicide: 1) The patient's reported thoughts of suicide seem to be related to material gain in relation to the patient's homelessness,these must be taken with healthy dose of suspicion The patient has not been abusing alcohol or substances The patient does not report any command hallucinations The patient does not have a terminal illness The patient does not suffer from chronic severe pain. Plan: Continue Sertraline HCl 100 MG Q 8:00 AM Continue inpatient psychiatric care with safety checks every 15 minutes, continue nursing assessments vital signs and patient education Continue aftercare planning and collateral information by social work Psychiatrist to meet with the patient daily to evaluate mental status and monitor medications
[2017-06-20 08:11] VITALS: BP 118/66
[2017-06-20 12:16] VITALS: BP 128/68
[2017-06-20 15:54] VITALS: BP 130/67
--- NOTE | 2017-06-20 15:56 | SOCIAL WORKER PROG NOTE PSYCH ---
Social Work Progress Note Progress Note Nirav seemed to be having a good time with the nursing students playing cards and other games on the unit today. When we met he reported that he was doing okay, but still trying to work on his depression. I told him that I did connect with his therapist from [facility] the other day. He seemed please to hear that. I asked if he had contacted his Brother Jani? He said he did and that he gave the number to the unit in case he needs to reach him. I asked if he shared what was going on with him and why he is in the hospital? He said he didn't and only gave him this new number. I told Nirav his time is limited and winding down here and today would be a good day to call 211. We called together. He was able to get a CAN Assessment Friday 06/23 at [facility]. I told him that our plan would be for him to go to [facility] if possible, so if there is no bed available there on Friday we would reschedule that appt. Called Severiano (manager business development hospice) at [facility]. She anticipates some bed availability early next week and will let me know when a bed becomes available.
[2017-06-20 19:35] VITALS: BP 136/65
[2017-06-21 07:33] VITALS: BP 114/72
--- NOTE | 2017-06-21 11:03 | CP SOUTH PROGRESS NOTE PSYCH ---
Psych (Inpt) Progress Note Progress Note Include the following elements, when applicable: Involvement in the active treatment of the patient with behavioral observations of the patient and the patient's response to the treatment. Review of the ongoing treatment process in the context of the treatment plan. Indication of how multi-disciplinary staff members are carrying out the treatment plan. Plans for future interventions and recommendations for revision of the treatment plan. Liaison with other physicians/providers. Progress Note: Pt notes that he is "alright." He notes good sleep. He feels that he mood is "up and down, like a rollcoster." He notes continued passive SI to "jump in front of train, to make it quick." Feels safe here. Current Medications Sig/Ene Start time Last Medication Dose Route Stop Time Status Admin Acetaminophen 650 MG Q6P PRN 06/10 2100 AC PO Diphenhydramine HCl 50 MG Q6P PRN 06/10 2044 AC PO Diphenhydramine HCl 50 MG Q6P PRN 06/10 2044 AC IM Haloperidol 5 MG Q6P PRN 06/10 2044 AC PO Haloperidol 5 MG Q6P PRN 06/10 204 AC IM Magnesium Hydroxide 30 ML AT BEDTIME NEED.. 06/10 204 AC PO Sertraline HCl 100 MG 0800 06/17 0800 AC 06/21 PO 0736 Trazodone HCl 50 MG AT BEDTIME NEED.. 06/10 204 AC PO Vital Signs Date Time Temp Pulse Resp B/P B/P Pulse O2 O2 Flow FiO2 Mean Ox Delivery Rate 06/21 0733 96.6 78 114/72 06/20 1935 98.6 82 136/65 06/20 1554 74 130/67 06/20 1216 69 128/68 MSE General appearance: good hygiene and grooming; Attitude: cooperative; Eye contact: appropriate; Movement: no psychomotor agitation or slowing; Speech: nl fluency, nl rate/rhythm, nl volume, nl prosody; Mood: "alright" Affect: irritable, flat, appropriate, constricted, non-labile, congruent; Thought process: linear and goal-directed; Thought content: +SI, denied HI, no paranoid ideation; Perception: denied hallucinations- auditory, visual, does not appear to be responding to internal stimuli; I/J: limited A/P: Pt with MDD with continued SI. As treatment [facility], pt may benefit w/o augmentation at this time. Concerned continued severe depression, may consider mirtazapine or low-dose abilify. -Continue current medication regimen -Encourage integration into the milieu
[2017-06-21 12:05] VITALS: BP 136/78
[2017-06-21 15:57] VITALS: BP 127/70
[2017-06-21 19:47] VITALS: BP 136/66
[2017-06-22 07:46] VITALS: BP 137/68
--- NOTE | 2017-06-22 12:02 | CP SOUTH PROGRESS NOTE PSYCH ---
Psych (Inpt) Progress Note Progress Note Include the following elements, when applicable: Involvement in the active treatment of the patient with behavioral observations of the patient and the patient's response to the treatment. Review of the ongoing treatment process in the context of the treatment plan. Indication of how multi-disciplinary staff members are carrying out the treatment plan. Plans for future interventions and recommendations for revision of the treatment plan. Liaison with other physicians/providers. Progress Note: Pt reports that he is trying to keep as busy as possible so to keep negative thoughts and passive SI at bay. He notes continued SI if where not here. Denies active SI here. NOtes that slept much better. Current Medications Sig/Ene Start time Last Medication Dose Route Stop Time Status Admin Acetaminophen 650 MG Q6P PRN 06/10 2100 AC PO Diphenhydramine HCl 50 MG Q6P PRN 06/10 2044 AC PO Diphenhydramine HCl 50 MG Q6P PRN 06/10 2044 AC IM Haloperidol 5 MG Q6P PRN 06/10 2044 AC PO Haloperidol 5 MG Q6P PRN 06/10 2044 AC IM Magnesium Hydroxide 30 ML AT BEDTIME NEED.. 06/10 2044 AC PO Sertraline HCl 100 MG 0800 06/17 0800 AC / PO 0759 Trazodone HCl 50 MG AT BEDTIME NEED.. 06/10 2044 AC PO Vital Signs Date Time Temp Pulse Resp B/P B/P Pulse O2 O2 Flow FiO2 Mean Ox Delivery Rate 06/22 0746 97.1 76 137/68 06/21 1947 98.0 83 136/66 06/21 1557 76 127/70 03 1205 65 136/78 MSE General appearance: good hygiene and grooming; Attitude: cooperative; Eye contact: appropriate; Movement: no psychomotor agitation or slowing; Speech: nl fluency, nl rate/rhythm, nl volume, nl prosody; Mood: "OK" Affect: irritable, flat, appropriate, constricted, non-labile, congruent; Thought process: linear and goal-directed; Thought content: + passive SI with active SI if leaves the hospital, denied HI, no paranoid ideation; Perception: denied hallucinations- auditory, visual, does not appear to be responding to internal stimuli; I/J: limited A/P: Pt with MDD with continued SI. As treatment [place], pt may benefit w/o augmentation at this time. Concerned continued severe depression, may consider mirtazapine or low-dose abilify. Pt open this this discussion. -Continue current medication regimen -Encourage integration into the milieu
[2017-06-22 12:05] VITALS: BP 128/70
[2017-06-22 15:34] VITALS: BP 121/58
[2017-06-22 19:38] VITALS: BP 121/70
[2017-06-23 07:41] VITALS: BP 95/59
--- NOTE | 2017-06-23 09:00 | CP SOUTH PROGRESS NOTE PSYCH ---
Psych (Inpt) Progress Note Progress Note Vital Signs Date Time Temp Pulse B/P Pulse O2 O2 Flow FiO2 Ox Delivery Rate 06/23 0741 97.5 78 95/59 03/04 1938 97.4 76 121/70 03/04 1534 74 121/58 03/04 1205 72 128/70 Mental Status Exam: Nirav was alert & oriented to time place and person. The patient's speech was within normal limits. Nirav exhibited normal psychomotor activity/no psychomotor agitation or retardation. He described his mood as "okay" but continues to claim he has thoughts of suicide. Nirav was coherent, there was no convincing evidence of a major thoughts disorder. The patient denied violent thoughts or HI. Nirav denied hallucinations. less guarded. Nirav's cognition appeared grossly intact, insight and judgment were fair. Summary & Risk Assessment: Nirav David is a 61-year-old single White male who was admitted to the inpatient psychiatric unit at [facility] on 06/10/2017 because of thoughts of suicide. He continues to have thoughts of suicide. The identified risk factors for suicide, and/or violence or homicide: 1) The patient voices thoughts of suicide (although these must be taken with healthy dose of suspicion since the patient may be malingering this part) Patient is homeless. Protective and Risk-Mitigating factors for suicide, and/or violence or homicide: 1) The patient's report of thoughts of suicide seems to be related to material gain in relation to the patient's homelessness, the patient's report must be taken with healthy dose of suspicion. 2) The patient has not been abusing alcohol or substances 3) The patient does not report any command hallucinations The patient does not have a terminal illness The patient does not suffer from chronic severe pain. the patient does not have access to firearms Treatment Plan Update: 1) Continue Sertraline HCl 100 MG Q 8:00 AM 2) Continue inpatient psychiatric care with safety checks every 15 minutes 3) continue nursing assessments vital signs and patient education Continue aftercare planning and collateral information by social work Psychiatrist to meet with the patient daily to evaluate mental status and monitor medications
--- NOTE | 2017-06-23 11:36 | SOCIAL WORKER PROG NOTE PSYCH ---
Social Work Progress Note Progress Note SW met this morning with pt. He reports his depression has been up and down. He reports he has been trying to keep busy but is "feeling funky" today. Overall he feels he is "doing alright" and drinking lots of fluids. Discussed plans for [facility] and [facility] CAN assesment. he reports CAN Assessment was scheduled for today at 10:30am but he isn't sure what happens next since he isn't scheduled for discharge today. Follow up phone call made to [facility] and spoke to Cindy [phone] ext [phone] regarding pt referral. She reports expected opening middle to end of week. She advised we call again tomorrow for an update.
[2017-06-23 12:27] VITALS: BP 132/67
[2017-06-23 16:06] VITALS: BP 109/62
--- NOTE | 2017-06-23 16:52 | SOCIAL WORKER PROG NOTE PSYCH ---
Social Work Progress Note Progress Note Called 211 with Nirav, informed them that he missed CAN assessment at [facility] this morning because he was not discharged from [place] as of yet. Spoke with Good/Zonia he stated best to call and schedule another CAN assessement once we know the date Nirav will be discharged (looks likely for this week).
[2017-06-23 19:53] VITALS: BP 137/64
[2017-06-24 07:53] VITALS: BP 126/77
--- NOTE | 2017-06-24 08:52 | CP SOUTH PROGRESS NOTE PSYCH ---
Psych (Inpt) Progress Note Progress Note Vital signs: Temp: 97.2 degrees Fahrenheit, Pulse: 76 per minute B/P: 126/77 mmHg Mental Status Exam: Nirav continues to claim he has wishes of and thoughts of suicide (he does acknowledge that he struggled with thoughts of suicide "for years") He was alert & oriented to time place and person. His speech was normal. Nirav exhibited normal psychomotor activity/no psychomotor agitation or retardation. He described his mood as "not normal", but try to clarify by asking him whether he would consider himself to have a mild/moderate or severe depression, his reply was that "it varies", when I asked does it varied day-to-day he said it varies "sometimes hour to hour" Nirav was coherent, there was no evidence of a major thought disorder. He denied violent thoughts or thoughts of homicide. Nirav denied hallucinations. Nirav's cognition appeared grossly intact. Summary & Risk Assessment: Nirav David is a 61-year-old single White male who was admitted to the inpatient psychiatric unit at [facility] on 06/10/2017 because of thoughts of suicide. He continues to have thoughts of suicide. He reported that he has been having thoughts of suicide "for years" The patient's reliability regarding this particular complaint (i.e. thoughts of suicide) is questionable because of the very apparent material gain in the old here relating to the patient's homelessness since Reji 2017 Identified risk factors for suicide and/or violence or homicide: 1) The patient voices thoughts of suicide (although these must be taken with healthy dose of skepticism since the patient may be malingering this part to avoid facing homelessness) Protective and Risk-Mitigating factors for suicide and/or violence or homicide: 1) The patient's report of thoughts of suicide seems to be related to material gain in relation to the patient's homelessness, the patient's report must be taken with healthy dose of skepticism. 2) The patient has not been abusing alcohol or substances 3) The patient does not report any command hallucinations 4) The patient does not have a terminal illness The patient does not suffer from chronic severe pain. the patient does not have access to firearms Treatment Plan Update: 1) Continue Sertraline HCl 100 MG Q 8:00 AM 2) Continue inpatient psychiatric care including: safety checks every 15 minutes , nursing assessments, vital signs, patient education, aftercare planning (by INVENTORY AND PRICING ASSOCIATE), psychiatrist to meet with the patient daily to evaluate mental status and monitor medications
--- NOTE | 2017-06-24 11:17 | SOCIAL WORKER PROG NOTE PSYCH ---
Social Work Progress Note Progress Note SHRUTHI TURNER [id number] 1955 SHRUTHI TURNER [id number] Pended Authorization # Client Authorization # Type of Request [id number] CONCURRENT Date of Admission/ Start of Services Requested From Submission Date 06/10/2017 06/24/2017 06/24/2017
[2017-06-24 12:24] VITALS: BP 132/75
[2017-06-24 15:56] VITALS: BP 126/73
--- NOTE | 2017-06-24 16:55 | SOCIAL WORKER PROG NOTE PSYCH ---
Social Work Progress Note Progress Note Nirav reports that his depression has worsened in the past few days. He said he has been keeping busy trying to occupy himself and so he is not isolating. Asked what he would do at discharge to keep busy? He said he really didn't know and couldn't think that far ahead. I told him we did not hear back from [facility] today and so I wasn't sure when he would need to reschedule his CAN Assessment yet. He continues to ask questions about housing opportunities. I gave him some info on [facility] in [place], but I don 't think he qualifies for any of their programs. I encouraged him to call and ask. He keeps saying the shelters will be closed soon due to the weather getting warmer. I told him that the overflow/ no freeze will stop, but they still have retirement beds available. Talked about a referral to [facility]. He is worried about how he will get there. I asked about his car? He said he does have a car, but it is not an option for him to use since he has no money for gas nor is it insured at this point. I asked where the car was? He told me it was on the grounds of [facility].
[2017-06-24 19:38] VITALS: BP 123/69
--- NOTE | 2017-06-25 07:39 | CP SOUTH PROGRESS NOTE PSYCH ---
Psych (Inpt) Progress Note Progress Note Vital Signs Vital Signs Date Time Temp Pulse B/P 06/25 1216 71 132/76 06/25 0741 97.5 73 113/74 The patient's progress was discussed the treatment team meeting this morning Mental Status Exam: Patient continues to report on and off thoughts of suicide (he struggled with thoughts of suicide "for years") He was alert & oriented to time place and person. His speech was normal. Nirav exhibited normal psychomotor activity/no psychomotor agitation or retardation. He reports that his mood changes day to day and sometimes hour to hour, he did tell the nursing staff that he felt that he may be getting more depressed yesterday, he did not feel this way today The patient was coherent, there was no evidence of a major thought disorder. He denied violent thoughts or thoughts of homicide. Nirav denied hallucinations. Nirav's cognition appeared grossly intact. Summary & Risk Assessment: Nirav David is a 61-year-old single White male who was admitted to the inpatient psychiatric unit at on 06/10/2017 because of thoughts of suicide. He continues to have thoughts of suicide. He reported that he has been having thoughts of suicide "for years" The patient's reliability regarding this particular complaint (i.e. thoughts of suicide) is questionable because of the very apparent material gain in the old here relating to the patient's homelessness since 2016 The patient continues to report that he is experiencing thoughts of suicide Identified risk factors for suicide and/or violence or homicide: 1) The patient voices thoughts of suicide (although these must be taken with healthy dose of skepticism since the patient may be malingering this part to avoid facing homelessness) Protective and Risk-Mitigating factors for suicide and/or violence or homicide: 1) The patient's report of thoughts of suicide seems to be related to material gain in relation to the patient's homelessness, the patient's report must be taken with healthy dose of skepticism. 2) The patient has not been abusing alcohol or substances 3) The patient does not report any command hallucinations 4) The patient does not have a terminal illness The patient does not suffer from chronic severe pain. the patient does not have access to firearms Treatment Plan Update: 1) add Abilify 2 mg daily 2) continue Sertraline HCl 100 MG Q 8:00 AM 3) Continue inpatient psychiatric care including: safety checks every 15 minutes , nursing assessments, vital signs, patient education, aftercare planning (by [facility]), psychiatrist to meet with the patient daily to evaluate mental status and monitor medications
[2017-06-25 07:41] VITALS: BP 113/74
--- NOTE | 2017-06-25 11:08 | SOCIAL WORKER PROG NOTE PSYCH ---
Social Work Progress Note Progress Note -Product Development Worker called Severiano at [facility] to check on bed availability for Nirav. Severiano informed singer songwriter that there is one person who is on a day-to-day discharge status which was dependent upon when this person is able to move into his apartment. As such Severiano said to call back every day to check on the status of this bed. Additionally, Severiano reported that there would be a male bed some time early next week. -Product Development Worker filled out referral form for [facility] and faxed. Received fax confirmation at 11:43AM. Product Development Worker met with Nirav today in [facility]. He reported to be feeling tired and that his mood was "okay". He rated his depression as a 5/10, and his anxiety as a 3/ 10. He also reported intermittent SI. Product Development Worker asked Nirav if he had been able to identify any thoughts or events that trigger the SI. Nirav stated that he has SI when he first wakes up, and that the specific thought that runs through his mind is "it's the only way". Nirav continued "I know what I am going to do, it's imminent, it's just about when". Product Development Worker asked what his plan was. Nirav stated, "something fast, stepping in front of a train probably". Product Development Worker pointed out to Nirav that while his rating of his depression as a 5 is not great, that feeling that is the "only way" and imminent is a bit closer to a severity of 10/ 10. Product Development Worker stated that she was not questioning the validity of Nirav's rating of his own depression, but rather that she wanted to point out to Nirav the discrepancy. Nirav stated that perhaps "imminent" was too strong of a word, and that perhaps he was just trying to "fool himself" by saying he was a 5/10 and was really worse off than that. Product Development Worker again stated that she was not questioning Nirav, but explained that sometimes with depression or sadness, that people start to fall into negative patterns of thinking and get stuck on autopilot. Product Development Worker suggested that when Nirav has SI, that he try to challenge the thoughts by pointing out to himself some positive counteractive facts (ie: that Nirav reached out for help when he was feeling hopeless). Product Development Worker suggested that Nirav try to do this even just once a day, and that doing so may help shift his thinking and consequently his mood. Nirav agreed to try to do this and stated that he felt hopeful that doing such a practice might help him.
[2017-06-25 12:16] VITALS: BP 132/76
[2017-06-25 15:40] VITALS: BP 107/58
[2017-06-25 19:26] VITALS: BP 137/66
[2017-06-26 07:38] VITALS: BP 118/73
--- NOTE | 2017-06-26 07:52 | CP SOUTH PROGRESS NOTE PSYCH ---
Psych (Inpt) Progress Note Progress Note Vital Signs: Temp. 96.8 Fahrenheit; pulse: 77 beats/min. BP: 118/73 mmHg The patient's progress was discussed the treatment team meeting this morning Mental Status Examination: Nirav reported that his mood is no different than in the previous days. Continues to be chronically depressed, he estimates the severity as mild to moderate and keeps saying that it varies day to day. Patient continues to struggle with chronic thoughts of suicide (reportedly this has been going on for a number of years). He exhibits constricted, almost flat affect. He was alert & oriented to time place and person. His speech was normal. Nirav exhibited normal psychomotor activity/no psychomotor agitation or retardation. Nirav was for the most part coherent, there was no evidence of a major thought disorder. He denied violent thoughts or thoughts of homicide. Nirav denied hallucinations. Nirav's cognition appeared grossly intact. Summary & Risk Assessment: Nirav David is a 61-year-old single White male who was admitted to the inpatient psychiatric unit at [facility] on 06/10/2017 because of thoughts of suicide. He continues to have thoughts of suicide. He reported that he has been having thoughts of suicide "for years" The patient's reliability regarding this particular complaint (i.e. thoughts of suicide) is questionable because of the very apparent material gain in the old here relating to the patient's homelessness since 2016 The patient continues to report that he is experiencing thoughts of suicide IDENTIFIED RISK FACTORS FOR SUICIDE AND/OR VIOLENCE OR HOMICIDE: 1) The patient voices thoughts of suicide (although these must be taken with healthy dose of skepticism since the patient may be malingering this part to avoid facing homelessness) PROTECTIVE AND RISK-MITIGATING FACTORS FOR SUICIDE AND/OR VIOLENCE OR HOMICIDE: 1) The patient's report of thoughts of suicide seems to be related to material gain in relation to the patient's homelessness, the patient's report must be taken with healthy dose of skepticism. 2) The patient has not been abusing alcohol or substances 3) The patient does not report any command hallucinations 4) The patient does not have a terminal illness 5) Nirav does not suffer from chronic severe pain. 6) He does not have access to firearms Treatment Plan Update: 1) Add Abilify 2 mg daily 2) continue Sertraline 100 MG Q 8:00 AM 3) Continue inpatient psychiatric care including: safety checks every 15 minutes , nursing assessments, vital signs, patient education, aftercare planning (by BAND SPLICER), psychiatrist to meet with the patient daily to evaluate mental status and monitor medications
--- NOTE | 2017-06-26 11:36 | SOCIAL WORKER PROG NOTE PSYCH ---
Social Work Progress Note Progress Note SHRUTHI TURNER [id number] 1955 SHRUTHI TURNER [id number] Pended Authorization # Client Authorization # Type of Request [id number] CONCURRENT Date of Admission/ Start of Services Requested From Submission Date 06/10/2017 06/26/2017 06/26/2017
[2017-06-26 12:03] VITALS: BP 112/63
--- NOTE | 2017-06-26 13:55 | SOCIAL WORKER PROG NOTE PSYCH ---
Social Work Progress Note Progress Note -Photo Checker And Assembler called Severiano at [facility] to check on bed availability. Severiano stated there were still no available beds. She stated that [facility] can call back each day and/or that she would call Mariana Medina when a bed becomes available. -Photo Checker And Assembler called [facility] and spoke with Nasra to confirm that she had received the referral forms that had been faxed yesterday. Nasra stated that she had received the fax and that she will review the information and call Mariana Medina LCSW. She stated that she had no openings currently but that she hoped that she would by the time Nirav is discharged [facility]. Photo Checker And Assembler met with Nirav this afternoon. He reported to be feeling better than yesterday. He stated that he had requested his medication be increased and that he believed that he was feeling better due to the increase and also due to keeping busy by attending groups and staying out of his room. Nirav also stated that he had challenged his suicidal thoughts today. He stated that he said "I don't need this" to himself, when the SI arose. Nirav spoke to this report writer about how he feels that his depression has affected many different areas of his life. He stated that he feels that he pushed friends away due to feeling depressed. He also stated that he felt he drank too much 20-30 years ago to cope with the depression. He stated at that point in time his drinking was "out of control". Photo Checker And Assembler told Nriav about the [facility] program in [place]. He asked report writer to give him some information about the program and that he would consider it. Photo Checker And Assembler gave Nirav a copy of the information pamphlet and application.
[2017-06-26 16:26] VITALS: BP 104/61
--- NOTE | 2017-06-26 16:44 | SOCIAL WORKER PROG NOTE PSYCH ---
Social Work Progress Note Progress Note Received a message from Nasra Erazo at [facility]. She has Nirav's intake scheduled for 07/07 [address] [place] [address] in [place]. Fax d/c to [phone].
[2017-06-26 19:29] VITALS: BP 120/69
[2017-06-27 07:33] VITALS: BP 99/56
--- NOTE | 2017-06-27 07:36 | CP SOUTH PROGRESS NOTE PSYCH ---
Psych (Inpt) Progress Note Progress Note Vital Signs: Temp. 97.1 Fahrenheit; pulse: 80 beats/min. BP: 99/56 mmHg. The patient's progress was discussed the treatment team meeting this morning Mental Status Examination: The patient reported that there has been no change in his mood or the frequency or intensity of thoughts of suicide (chronically depressed with chronic thoughts of suicide for a number of years, by his report). He exhibits constricted, almost flat affect. He was alert & oriented to time place and person. His speech was normal. The patient was coherent, there was no evidence of a major thought disorder. He denied violent thoughts or thoughts of homicide. Nirav denied hallucinations Assessment: a 61-year-old single White male who was admitted to the inpatient psychiatric unit at on 06/10/2017 because of thoughts of suicide. He continues to have thoughts of suicide. He reported that he has been having thoughts of suicide "for years." The patient's reliability regarding this particular complaint (i.e. thoughts of suicide) is questionable because of the very apparent material gain relating to the patient's homelessness since 2016 Treatment Plan Update: 1) continue Abilify 2 mg daily 2) continue Sertraline 100 MG Q 8:00 AM Patient may be discharged as soon as there is bed availability at [facility] Progress Note:
--- NOTE | 2017-06-27 10:18 | SOCIAL WORKER PROG NOTE PSYCH ---
Social Work Progress Note Progress Note [facility] in [place] to see about bed availability. Severiano ( guest service manager) said they are full still and to check next week. Met with Nirav. Asked how he was doing? He said "alright." I brought up the fact that he has continued to say he is suicidal to the nursing staff every day. He said "well I'm not going to lie." I told him that this seemed to be a chronic condition and people live lives outside of the hospital and learn how to manage those thoughts. Asked what he has been doing to manage that? He stated he has been just keeping himself distracted. He then went on to say that he has had periods in his life that he was not having suicidal thoughts and he hopes to get to that place again. I asked when those periods were? He wasn't clear other than saying as a child in school and some times in his adult life. Encouraged him to work on talking himself through those thoughts so he could be safe. Asked about the information given to him yesterday on [facility]. He said he looked through it and doesn't think that program is for him. I told him he hasn't really mentioned any major problems in his life related to alcohol use. He said he didn't really have a problem. He said he drank a beer or two after work and on weekends might drink a 6 pack or more if he was at a libertarian. I asked if he ever had any arrests or DUI's or consequences to drinking? He said no. Informed him that [facility] not [facility] today. Informed him that his [facility] Intake is 07/07.
[2017-06-27 12:16] VITALS: BP 131/73
[2017-06-27 15:41] VITALS: BP 114/55
[2017-06-27 19:26] VITALS: BP 108/58
[2017-06-28 08:01] VITALS: BP 106/60
[2017-06-28 12:05] VITALS: BP 112/56
--- NOTE | 2017-06-28 12:10 | CP SOUTH PROGRESS NOTE PSYCH ---
Psych (Inpt) Progress Note Progress Note Include the following elements, when applicable: Involvement in the active treatment of the patient with behavioral observations of the patient and the patient's response to the treatment. Review of the ongoing treatment process in the context of the treatment plan. Indication of how multi-disciplinary staff members are carrying out the treatment plan. Plans for future interventions and recommendations for revision of the treatment plan. Liaison with other physicians/providers. Progress Note: Chart reviewed, progress discussed with nursing staff. Interviewed patient this morning. He is known to me from previous weekends. He is much more bright and cooperative than two weeks ago. Seems more optimistic. REports no adverse effects from starting abilify 2 mg. Says "my suicidal thoughts are much less today". Has no plan to harm himself on unit. Denies HI, denies AVH. Vital signs are within normal limits. No new laboratory results today. Mental status exam: man, appears older than stated age, well groomed, no psychomotor agitation or retardation, fair eye contact. Speech was within normal limits, mood was "better today", affect was constricted, non-labile. Thought process slightly ruminative at times, content with vague SI without intent or plan, denies HI, denies AVH, his cognition appeared grossly intact, and his insight and judgment were fair. A/P: Mood continues to slowly improve. Remains ruminative regarding circumstances of life though much better than observed two weeks ago. Seems increasing brighter and socially interactive. Will continue present management as per primary team.
[2017-06-28 16:25] VITALS: BP 132/67
[2017-06-28 19:58] VITALS: BP 146/70
[2017-06-29 07:47] VITALS: BP 97/60
[2017-06-29 11:58] VITALS: BP 134/74
--- NOTE | 2017-06-29 13:14 | CP SOUTH PROGRESS NOTE PSYCH ---
Psych (Inpt) Progress Note Progress Note Include the following elements, when applicable: Involvement in the active treatment of the patient with behavioral observations of the patient and the patient's response to the treatment. Review of the ongoing treatment process in the context of the treatment plan. Indication of how multi-disciplinary staff members are carrying out the treatment plan. Plans for future interventions and recommendations for revision of the treatment plan. Liaison with other physicians/providers. Progress Note: Chart reviewed, progress discussed with nursing staff. Interviewed patient this morning. Again, bright, pleasant, interactive. VAgue SI without plan or intent. No adverse effects from abilify intiation. Denies further needs today. Vital signs are within normal limits. No new laboratory results today. Mental status exam: man, appears older than stated age, well groomed, no psychomotor agitation or retardation, fair eye contact. Speech was within normal limits, mood was "pretty good", affect was constricted, non-labile. Thought process slightly ruminative at times, content with vague SI without intent or plan, denies HI, denies AVH, his cognition appeared grossly intact, and his insight and judgment were fair. A/P: Mood continues to slowly improve. Remains ruminative regarding circumstances of life though much better than observed two weeks ago. Seems increasing brighter and socially interactive. Will continue present management as per primary team.
[2017-06-29 15:58] VITALS: BP 147/77
[2017-06-29 19:54] VITALS: BP 144/81
[2017-06-30 07:40] VITALS: BP 110/63
--- NOTE | 2017-06-30 11:54 | CP SOUTH PROGRESS NOTE PSYCH ---
Psych (Inpt) Progress Note Progress Note Include the following elements, when applicable: Involvement in the active treatment of the patient with behavioral observations of the patient and the patient's response to the treatment. Review of the ongoing treatment process in the context of the treatment plan. Indication of how multi-disciplinary staff members are carrying out the treatment plan. Plans for future interventions and recommendations for revision of the treatment plan. Liaison with other physicians/providers. Progress Note: I discussed this patient's progress to date, current mental status, treatment process in the context of the treatment plan, and discharge planning with staff/ team in the daily morning inpatient team meeting. I also met with the patient myself in individual session. A total of 25 minutes was spent with the patient with more than 50% spent in counseling and/or coordination of care. SUBJECTIVE: "I have suicidal thoughts, not every day. I am here because I was thinking of jumping in front of a train." OBJECTIVE: Current Medications Sig/Ene Start time Last Medication Dose Route Stop Time Status Admin Acetaminophen 650 MG Q6P PRN 06/10 2100 AC PO Aripiprazole 2 MG 06/27 0800 AC 06/30 PO 0815 Diphenhydramine HCl 50 MG Q6P PRN 06/10 2045 AC PO Diphenhydramine HCl 50 MG Q6P PRN 06/10 2045 AC IM Haloperidol 5 MG Q6P PRN 06/10 2045 AC PO Haloperidol 5 MG Q6P PRN 06/10 2045 AC IM Magnesium Hydroxide 30 ML AT BEDTIME NEED.. 06/10 204 AC PO Sertraline HCl 150 MG 07/01 0800 UNVr PO Sertraline HCl 50 MG ONCE ONE 06/30 1145 UNVr PO 06/30 1146 Sertraline HCl 100 MG 06/17 0800 DC 06/30 PO 0815 Trazodone HCl 50 MG AT BEDTIME NEED.. 06/10 2045 AC PO Vital Signs Date Time Temp Pulse Resp B/P B/P Pulse O2 O2 Flow FiO2 Mean Ox Delivery Rate 06/30 0740 97.3 77 110/63 06/29 1953 97.8 80 144/81 06/29 1558 73 147/77 06/29 1158 69 134/74 ASSESSMENT: Patient presents today calm, cooperative and pleasant. Reports continued intermittent suicidal thoughts, with intermittent plans to harm himself. Denies any plans to harm himself at this time. Says that he is getting some benefit from the medications he is taking, sertraline and Abilify, and is feeling better than when he first came to the hospital. Depression:10/28; Anxiety:10/28 (with 10 the worst.) He reports recently, but only once, hearing a voice speak to him briefly, saying "what now? He says that when he sees a blank sheet of paper, or blank green, he sometimes sees a background color which other people do not see, or sometimes a design which other people do not see. He denies homicidal ideation Speech is well articulated, goal-directed, average in rate, volume and tone. The patient understands the risks/benefits/side effects of the medication and is agreeable to continue taking them. PLAN: After reviewing the patient's chart, he appears to be making slow, but significant improvement. 1. Increase sertraline to 150 mg daily for continuing depression and anxiety. 2. Continue other medication management, as his medications appear to be well tolerated, to good effect. Continue to provide support and encouragement.
[2017-06-30 12:03] VITALS: BP 121/70
[2017-06-30 16:07] VITALS: BP 127/56
--- NOTE | 2017-06-30 16:12 | SOCIAL WORKER PROG NOTE PSYCH ---
Social Work Progress Note Progress Note [facility] full today. Spoke with Nirav this afternoon. He reported that his Zoloft was increasing today. He was focused on telling me about this and how he hopes the medication helps him. I reminded him it is not just about medications, but it's about managing his negative thoughts. He then went on to praise this unit for helping him and talked about how he tries to keep busy here and that he takes advantage of all the services. I agreed, and reminded him that IOP will be available to him when he leaves to help with the same things. Asked if he was experiencing any SI? He said that he was earlier in the day. He is now telling me that he will tell staff "not at the moment." Because he doesn't want people to think he isn't at all. Talked about difficulty at times falling asleep, but mostly seemed to be environmental circumstances due to being in a hospital setting.
--- NOTE | 2017-06-30 16:49 | SOCIAL WORKER PROG NOTE PSYCH ---
Social Work Progress Note Progress Note Completed P online review - for continued stay. Check web for next review date.
[2017-06-30 19:56] VITALS: BP 138/70
[2017-07-01 07:48] VITALS: BP 109/64
--- NOTE | 2017-07-01 11:57 | SOCIAL WORKER PROG NOTE PSYCH ---
Social Work Progress Note Progress Note [facility] have not screened Nirav yet, and will do so when there are beds available, there aren't any beds available today when I called them.
[2017-07-01 12:04] VITALS: BP 128/65
--- NOTE | 2017-07-01 12:54 | CP SOUTH PROGRESS NOTE PSYCH ---
Psych (Inpt) Progress Note Progress Note Include the following elements, when applicable: Involvement in the active treatment of the patient with behavioral observations of the patient and the patient's response to the treatment. Review of the ongoing treatment process in the context of the treatment plan. Indication of how multi-disciplinary staff members are carrying out the treatment plan. Plans for future interventions and recommendations for revision of the treatment plan. Liaison with other physicians/providers. Progress Note: I discussed this patient's progress to date, current mental status, treatment process in the context of the treatment plan, and discharge planning with staff/ team in the daily morning inpatient team meeting. I also met with the patient myself in individual session. A total of 15 minutes was spent with the patient with more than 50% spent in counseling and/or coordination of care. SUBJECTIVE: "Yesterday I heard a woman's voice, as if she was standing behind me , stating "are you sure about this?" But there was no one there." OBJECTIVE: Current Medications Sig/Ene Start time Last Medication Dose Route Stop Time Status Admin Acetaminophen 650 MG Q6P PRN 06/10 2100 AC PO Aripiprazole 2 MG 06/27 0800 AC 07/01 PO 0756 Diphenhydramine HCl 50 MG Q6P PRN 06/10 204 AC PO Diphenhydramine HCl 50 MG Q6P PRN 06/10 204 AC IM Haloperidol 5 MG Q6P PRN 06/10 204 AC PO Haloperidol 5 MG Q6P PRN 06/10 2044 AC IM Magnesium Hydroxide 30 ML AT BEDTIME NEED.. 06/10 2044 AC PO Sertraline HCl 150 MG 07/01 0800 AC 07/01 PO 0756 Trazodone HCl 50 MG AT BEDTIME NEED.. 06/10 204 AC PO Vital Signs Date Time Temp Pulse Resp B/P B/P Pulse O2 O2 Flow FiO2 Mean Ox Delivery Rate 07/01 1204 71 128/65 07/01 0748 96.8 74 109/64 06/30 1956 98.7 79 138/70 06/30 1607 95 127/56 ASSESSMENT: Patient presents today calm and pleasant. Appears to be at his baseline. Tolerating his medications well, including the increase of sertraline to 150 mg daily. He continues to complain of depression, anxiety, suicidal ideation. He reports occasional auditory hallucinations of hearing a voice. He continues to say that when looking at a blank white sheet of paper, he will see faint diagrams and "ghosted pink/sisi colors." Depression:7-11/28; Anxiety:7-11/28 (with 10 the worst.) Denies homicidal ideation, paranoid ideation. Reports some difficulty sleeping at night, waking up numerous times at night, not feeling rested when he awakens in the morning. Speech is well articulated, goal-directed, average in rate, volume and tone. The patient understands the risks/benefits/side effects of the medication and is agreeable to continue taking them. PLAN: 1. Discontinue abilify, and start olanzapine 2.5mg QHS for difficulty sleeping, auditory and visual hallucinations. Continue with other current management. Continue to provide support and encouragement.
[2017-07-01 15:40] VITALS: BP 141/65
[2017-07-01 15:50] VITALS: BP 128/73
--- NOTE | 2017-07-01 16:47 | SOCIAL WORKER PROG NOTE PSYCH ---
Social Work Progress Note Progress Note Bradley Lee APRN and I met with Nirav. I asked him more about these visual hallucinations he says he is having. He stated he sees colors and pictures on white green. He describes it as "wallpaper." They don't seem to be disturbing to him and it is something that seems to have been going on for awhile now. He reported having surgery years ago on his eyes for cataracts. He has artificial lens. I encouraged him to get an eye exam. Talked about planning for discharge. Told him that [facility]. He said he is really banking on going there, because there is no other option. I told him we are hoping that will come through, but we have to proceed with discharge even if they have no bed. He kept stating that he can't go back to the same situation he was in and he can't go back to the overflow half-way. I again reiterated that the hospital is not housing and he is going to have to d/c by Friday. I told him I will give him the number for [facility] tomorrow and he can call.
[2017-07-01 20:21] VITALS: BP 143/74
[2017-07-02 07:56] VITALS: BP 113/61
--- NOTE | 2017-07-02 11:28 | CP SOUTH PROGRESS NOTE PSYCH ---
Psych (Inpt) Progress Note Progress Note Include the following elements, when applicable: Involvement in the active treatment of the patient with behavioral observations of the patient and the patient's response to the treatment. Review of the ongoing treatment process in the context of the treatment plan. Indication of how multi-disciplinary staff members are carrying out the treatment plan. Plans for future interventions and recommendations for revision of the treatment plan. Liaison with other physicians/providers. Progress Note: I discussed this patient's progress to date, current mental status, treatment process in the context of the treatment plan, and discharge planning with staff/ team in the daily morning inpatient team meeting. I also met with the patient myself in individual session. A total of 15 minutes was spent with the patient with more than 50% spent in counseling and/or coordination of care. SUBJECTIVE: "I did not hear any voices last night." OBJECTIVE: Current Medications Sig/Ene Start time Last Medication Dose Route Stop Time Status Admin Acetaminophen 650 MG Q6P PRN 06/10 2100 AC PO Aripiprazole 2 MG 0806/27 0800 DC 07/01 PO 0756 Diphenhydramine HCl 50 MG Q6P PRN 06/10 2045 AC PO Diphenhydramine HCl 50 MG Q6P PRN 06/10 204 AC IM Haloperidol 5 MG Q6P PRN 06/10 204 AC PO Haloperidol 5 MG Q6P PRN 06/10 204 AC IM Magnesium Hydroxide 30 ML AT BEDTIME NEED.. 06/10 2044 AC PO Olanzapine 5 MG AT BEDTIME 07/02 2200 AC PO Olanzapine 2.5 MG AT BEDTIME 07/01 220 DC 07/01 PO 2139 Sertraline HCl 150 MG 0800 07/01 0800 AC 07/02 PO 0800 Trazodone HCl 50 MG AT BEDTIME NEED.. 06/10 204 DC PO Vital Signs Date Time Temp Pulse Resp B/P B/P Pulse O2 O2 Flow FiO2 Mean Ox Delivery Rate 07/02 075 96.7 83 113/61 07/01 2020 97.3 81 143/74 07/01 1540 83 141/65 07/01 1204 71 128/65 ASSESSMENT: Patient presented today calm and cooperative. He reports a small improvement to depression and anxiety since yesterday, when he started olanzapine 2.5 mg at bedtime. Reports his suicidal ideation continues, states that he is safe at least while he is here. Denies having auditory hallucinations last night. Reports that he continues to see faint colors and diagrams when he looks at blank white sheets and green. We discussed discharge planning, and that he would likely be discharged this coming Friday. I encouraged him to discuss planning with social work. He was supposed to be making phone calls to [facility], but had not yet made those calls. I also encouraged him to consider other options such as friends and family, which he says he cannot do. Depression:10; Anxiety:09/28 (with 10 the worst.) Denies homicidal ideation, paranoid ideation. Reports that his appetite is normal, his energy, interest and concentration are low. Speech is well articulated, goal-directed, average in rate, volume and tone. The patient understands the risks/benefits/side effects of the medication and is agreeable to continue taking them. PLAN: 1. Increase olanzapine to 5 mg at bedtime for continuing report of auditory and visual hallucinations. We reviewed the risks, benefits, side effects of this medication including tardive dyskinesia and dystonic reactions, hyperlipidemia. 2. Patient should be planning for discharge in the next couple of days. Continue with current management as patient is improving. Continue to provide support and encouragement.
--- NOTE | 2017-07-02 12:02 | SOCIAL WORKER PROG NOTE PSYCH ---
Social Work Progress Note Progress Note Completed P online review for continued stay, check website for next review date.
[2017-07-02 12:17] VITALS: BP 118/60
--- NOTE | 2017-07-02 13:47 | SOCIAL WORKER PROG NOTE PSYCH ---
Social Work Progress Note Progress Note 1. called Severiano at [facility] and did a screening for Nirav. She anticipated that she would have a bed opening tomorrow, July 03. She stated that she was going to look N[place]av [place] [facility] and call back on Mariana Medina's number. 2. Coating Inspector called Christiana Castellanos LCSW, Nirav's outpatient therapist to update her on the tentative discharge plan. Coating Inspector left a voicemail stating that he may be discharging to [facility] tomorrow and that he has a [facility] intake on Friday. Her number is ([phone]). UPDATE: Severiano from [facility] called back and stated that they had accepted Nirav for the bed that would be opening up tomorrow. faxed over updated clincial information and an updated Client Discharged Agreement to Severiano. called Severiano to confirm that she had received the information, but left a message as Severiano had left for the day. called Lizbeth to schedule a ride for Nirav for transport to [facility] for tomorrow. scheduled the ride for 11AM. The confirmation number is [id number]. spoke with Nirav this afternoon to update him on his possible discharge tomorrow. He stated that he felt that he "had no other choice" and that he was anxious about leaving as he "did not know what he was getting into". explained that he would be going to his [facility] intake on Friday and that during the weekdays, he would attend [facility], and then in the evenings and on weekends he would be staying [facility]. and Nirav called [facility] to schedule his CAN assessment. The applications sales representative at [facility] explained that she could not schedule his assessment as he would technically not be considered homeless since he would be transfering directly to [facility] from the hospital. She stated that he could call back within 48 hours of his discharge from [facility].
[2017-07-02 16:07] VITALS: BP 128/66
[2017-07-02 20:05] VITALS: BP 119/55
[2017-07-03 07:47] VITALS: BP 122/65
--- NOTE | 2017-07-03 08:44 | SOCIAL WORKER PROG NOTE PSYCH ---
Social Work Progress Note Progress Note Talked to Nirav about [facility] to [facility] today. We talked about the program and what some of the expectations would be. He is nervous about going into a new/ different situation, but overall grateful for the opportunity to go and for the opportunity given to him here. Reviewed his intake appt. with him for [facility] on Friday and stated he will be seen by the doctor there once he starts the program. He seemed hopeful and is trying to stay positive. He stated he knows he can't stay here forever and that this is the next step in his journey. Let him know that his ride with Lizbeth was scheduled for 11am. Despite some chronic suicidal ideation while on the unit. At this time Nirav does not appear to be at imminent danger to himself or anyone else and we should proceed with discharge for today. Talked to Severiano at [facility]. Explained that Nirav will need to call [phone] once he gets there. She said they will help him do that. Meds should be called into to [facility] on [address].
[2017-07-03] MEDS ORDERED: SERTRALINE HCL50 MG PO (10:28)
[2017-07-03] MEDS ORDERED: OLANZAPINE5 M2 PO (10:28)
--- NOTE | 2017-07-03 10:46 | Patient Discharge Instructions ---
[facility] Discharge Information Reason for Admission: Patient is a 61 yo male presenting to [facility] on Friday 06/09 with suicidal ideation to walk in front of a train and placed on a PEC. Patient was transfered to [facility] on 06/10 for a direct admission to the inpatient psychiatric unit. Psy Discharge Primary Diag+ Unspecified Depressive disorder. Summary Tests/Major Procedures Lab BUN 23 mg/dL H 06/11/17 1453 BUN/Creatinine Ratio 32.9 % H 06/11/17 1453 Creatinine 0.7 mg/dL 06/11/17 1453 Estimated GFR > 60 ml/min 06/11/17 1453 Absolute Basophils 0 /CUMM 06/11/17 1453 Absolute Eosinophils 0.5 /CUMM 06/11/17 1453 Absolute Granulocytes 7.0 /CUMM H 06/11/17 1453 Absolute Lymphocytes 1.7 /CUMM 06/11/17 1453 Absolute Monocytes 1.2 /CUMM H 06/11/17 1453 Basophils % 0.4 % 06/11/17 1453 Eosinophils % 4.6 % 06/11/17 1453 Gran % 67.4 % 06/11/17 1453 Hct 36.5 % L 06/11/17 1453 Hgb 12.1 G/DL L 06/11/17 1453 Lymphocytes % 16.5 % L 06/11/17 1453 MCH 32.5 PG H 06/11/17 1453 MCHC 33.0 G/DL 06/11/17 1453 MCV 98.6 FL H 06/11/17 1453 MPV 8.4 FL 06/11/17 1453 Monocytes % 11.1 % H 06/11/17 1453 Plt Count 315 /CUMM 06/11/17 1453 RBC 3.70 /CUMM L 06/11/17 1453 RDW 14.8 % H 06/11/17 1453 WBC 10.4 /CUMM 06/11/17 1453 Studies Pending at [place]: None. Patient Instructions Contact Information Your Psychiatrist on [facility] was Emilio Goodrich MD * If you are experiencing an emergency related to this hospitalization, please call [phone] to contact the treating psychiatrist or the psychiatrist-on- call. * To Request a copy of your medical records, please contact the Medical Records Department at [phone]. * To request results of studies pending at the time of discharge, please call [phone]. * Continue your Medications until directed to stop by your Healthcare provider. General Medication Information Please continue to take your new medications and your continued home medications , unless otherwise indicated on your discharge medication list, or unless directed by your MD or PARK ACTIVITIES COORDINATOR to stop them. Special Instructions Diet Regular Activity Normal - Tobacco Use Treatment Offered Post DC Medications Offered: Refused Tob Medication Tx Post DC Tobacco Treatment Plan: Refused Tobacco Tx Pgm - EtOH/Drug Use D/O Treatment Offered Post DC Medications Offered: NA-No EtOH/Drug Use D/O Post DC EtOH/SubAbuse TX Plan: NA-No EtOH/Drug Use D/O Metabolic Screening () Not Applicable, patient not on a neuroleptic. OR ([x]) Patient on a neuroleptic(s) . Enter below results for Hemoglobin A1C, and lipid panel if obtained during the last 365 days. BMI: 21.3 Blood Pressure: 122/65 Laboratory Results From [facility] EHR (If applicable): Advance Directives Does the Patient have Medical Advance Directives No/Refused further info Does Pt have Psychiatric Advance Directives? No/Refused further info Does Patient have a Designated Surrogate Decision Maker: No Information About Psychiatric Advance Directives Provided? Refused Discharge Plan Post Hospital Treatment Plan: Provider Referral Service Date: 07/07/17 Referred To: [[facility]] Notes: Intake for [facility] Scheduled for 07/07/17 12pm [address] [facility], [place] [phone] Provider Referral Service Date: 07/03/17 [facility] To: [facility] Notes: [facility] [place] admission 07/03/17 [address] [place], [place] [phone]
--- NOTE | 2017-07-03 11:11 | DISCHARGE SUMMARY REPORT-PSYCH ---
Visit Information Visit Dates/Diagnosis' Admission Date: 06/10/17 Discharge Date: 07/03/17 Reason for Admission: Patient is a 61 yo male presenting to [facility] on Friday 06/09 with suicidal ideation to walk in front of a train and placed on a PEC. Patient was transfered to [facility] on 06/10 for a direct admission to the inpatient psychiatric unit. Psy Discharge Primary Diag: Unspecified Depressive disorder. Hospital Course Significant Lab Findings: Lab BUN 23 mg/dL H 06/11/17 1453 BUN/Creatinine Ratio 32.9 % H 06/11/17 1453 Creatinine 0.7 mg/dL 06/11/17 1453 Estimated GFR > 60 ml/min 06/11/17 1453 Absolute Basophils 0 /CUMM 06/11/17 1453 Absolute Eosinophils 0.5 /CUMM 06/11/17 1453 Absolute Granulocytes 7.0 /CUMM H 06/11/17 1453 Absolute Lymphocytes 1.7 /CUMM 06/11/17 1453 Absolute Monocytes 1.2 /CUMM H 06/11/17 1453 Basophils % 0.4 % 06/11/17 1453 Eosinophils % 4.6 % 06/11/17 1453 Gran % 67.4 % 06/11/17 1453 Hct 36.5 % L 06/11/17 1453 Hgb 12.1 G/DL L 06/11/17 1453 Lymphocytes % 16.5 % L 06/11/17 1453 MCH 32.5 PG H 06/11/17 1453 MCHC 33.0 G/DL 06/11/17 1453 MCV 98.6 FL H 06/11/17 1453 MPV 8.4 FL 06/11/17 1453 Monocytes % 11.1 % H 06/11/17 1453 Plt Count 315 /CUMM 06/11/17 1453 RBC 3.70 /CUMM L 06/11/17 1453 RDW 14.8 % H 06/11/17 1453 WBC 10.4 /CUMM 06/11/17 1453 Course Complications: None Consultations: Patient was seen for admission history and physical with Dr. Gibson. Please refer to her note for additional information. Allergies: Coded Allergies: prednisone (Intermediate, claims to have had chest pain and anxiety 06/11/17) Hospital Course/TX Response: The patient was monitored on the unit for safety, depression, suicidal ideation with a plan to step in front of a train. He participated in multimodal treatments on the unit. He was medicated with sertraline for depression and anxiety, olanzapine at bedtime for clear thoughts. Today, the day of discharge, he appears calm, cooperative and pleasant. Euthymic mood. Tolerating his medications well, to good effect. He reports continuing but stable depression and anxiety. Depression:6/10; Anxiety:6/10 (with 10 the worst.) Denies homicidal ideation, auditory hallucinations, paranoid ideation. He reports some continuing suicidal thoughts, without any plan or intent to harm himself. States that he feels safe. He reports continuing to see faint colors and diagrams when looking at blank sheets or white green, states that this is not new and has been going on for very long period of time. States that he slept well last night, denies nightmares. Reports that his appetite is good. His energy, interest and concentration are low. Speech is well articulated, goal-directed, average in rate, volume and tone. The patient understands the risks/benefits/side effects of the medication and is agreeable to continue taking them. He reports tolerating medications well without complaint. States he feels safe and ready for discharge. Discharge HBIPS - Tobacco Use Treatment Offered Post DC Medications Offered: Refused Tob Medication Tx Post DC Tobacco Treatment Plan: Refused Tobacco Tx Pgm - EtOH/Drug Use D/O Treatment Offered Post DC Medications Offered: NA-No EtOH/Drug Use D/O Post DC EtOH/SubAbuse TX Plan: NA-No EtOH/Drug Use D/O Metabolic Screening - Screen if on a Neuroleptic Medication - Metabolic screening should include: - Blood Pressure, BMI, Glucose or Hgb A1c, & a - Lipid profile from within the past 365 days. Metabolic Screening () Not Applicable, patient not on a neuroleptic. OR ([x]) Patient on a neuroleptic(s) . Enter below results for Hemoglobin A1C, and lipid panel if obtained during the last 365 days. BMI: 21.3 Blood Pressure: 122/65 Laboratory Results From [facility] (If applicable): Discharge Instructions General Discharge Information Multiple Neuroleptics: (x) Not Applicable OR Document below three failed attempts at monotherapy, or a plan to taper to monotherapy, or augmentation of Clozapine. () Discharge Diet Regular Discharge Activity Normal DC Disposition: Patient will be residing at [facility] in [place]. He will be receiving treatment at [facility]. Referrals Ordered Referrals Provider Referral 07/07/17 For Groups: [[facility]] Intake for [facility] Scheduled for 07/07/17 12pm [address] [place], [place] [phone] Provider Referral 07/03/17 For Groups: [[facility] [place] admission 07/03/17 [address] [place], [place] [phone] Prescriptions Start taking the following new medications: Sertraline HCl (Sertraline HCl) 50 MG TABLET 3 Tablet ORAL DAILY @8 AM Qty = 42 No Refills Comments: Last Taken:07/03/17 Time:8am Olanzapine (Olanzapine) 5 MG TABLET 1 Tablet ORAL AT BEDTIME Qty = 14 No Refills Comments: Last Taken:07/02/17 Time:10pm Studies Pending at Discharge None. Copies To: [facility]
--- NOTE | 2017-07-03 14:59 | SOCIAL WORKER PROG NOTE PSYCH ---
Social Work Progress Note Faxed Referral(s) 1 Referred To: [facility] Transition of Care Documents sent: Health Summary, W10 Faxed to: [facility] Fax #: [phone] Faxed by: Mariana Medina Date faxed: 07/03/17 Time Faxed: [phone] Faxed Referral(s) 2 Referred To: [facility] Transition [facility] Care Documents sent: Health Summary, W10 Faxed to: [facility] Fax #: [phone] Faxed by: Mariana Medina Date faxed: 07/03/17 Time Faxed: [phone]
--- NOTE | 2017-07-03 15:02 | CP SOUTH PROGRESS NOTE PSYCH ---
Psych (Inpt) Progress Note Progress Note Include the following elements, when applicable: Involvement in the active treatment of the patient with behavioral observations of the patient and the patient's response to the treatment. Review of the ongoing treatment process in the context of the treatment plan. Indication of how multi-disciplinary staff members are carrying out the treatment plan. Plans for future interventions and recommendations for revision of the treatment plan. Liaison with other physicians/providers. Progress Note: I discussed this patient's progress to date, current mental status, treatment process in the context of the treatment plan, and discharge planning with staff/ team in the daily morning inpatient team meeting. I also met with the patient myself in individual session. A total of 30 minutes was spent with the patient with more than 50% spent in counseling and/or coordination of care. SUBJECTIVE: "I do not have any plans to harm or kill myself, I have not heard any voices in the past 2 days." OBJECTIVE: Current Medications Sig/Ene Start time Last Medication Dose Route Stop Time Status Admin Acetaminophen 650 MG Q6P PRN 06/10 2100 DCD PO Diphenhydramine HCl 50 MG Q6P PRN 06/10 2044 DCD PO Diphenhydramine HCl 50 MG Q6P PRN 06/10 2044 DCD IM Haloperidol 5 MG Q6P PRN 06/10 2044 DCD PO Haloperidol 5 MG Q6P PRN 06/10 2044 DCD IM Magnesium Hydroxide 30 ML AT BEDTIME NEED.. 06/10 2044 DCD PO Olanzapine 5 MG AT BEDTIME 07/02 2200 DCD 07/02 PO 2136 Sertraline HCl 150 MG 0800 07/01 0800 DCD 07/03 PO 0842 Vital Signs Date Time Temp Pulse Resp B/P B/P Pulse O2 O2 Flow FiO2 Mean Ox Delivery Rate 07/03 0747 97.5 76 122/65 07/02 2004 97.6 94 119/55 07/02 1607 89 128/66 ASSESSMENT: This morning the patient appears calm, cooperative and pleasant. Euthymic mood. Tolerating his medications well, to good effect. He reports continuing but stable depression and anxiety. Depression:6/10; Anxiety:6/10 (with 10 the worst.) Denies homicidal ideation, auditory hallucinations, paranoid ideation. He reports some continuing suicidal thoughts, without any plan or intent to harm himself. States that he feels safe. He reports continuing to see faint colors and diagrams when looking at blank sheets or white green, states that this is not new and has been going on for very long period of time. States that he slept well last night, denies nightmares. Reports that his appetite is good. His energy, interest and concentration are low. Speech is well articulated, goal-directed, average in rate, volume and tone. The patient understands the risks/benefits/side effects of the medication and is agreeable to continue taking them. PLAN: 1. A bed has opened up at [facility] in [place], and the patient will be discharging today to that facility. We discussed the patient's discharge today in our team meeting, and it is our team's opinion that the patient is not a danger to himself or to others. He appears in a euthymic mood, without plan or intent to harm himself or anyone else. In our opinion the patient is safe for discharge today to [facility]. He has a follow-up appointment at [facility] for next week. Continue with current management as patient is improving. Continue to provide support and encouragement.
== END 2017-07-03 12:28 | DRG 754 ==
LOC: CP SOUTH 16:52
PROVIDERS: Hospitalist
DX: F32.9 Major depressive disorder, single episode, unspecified (principal)
CPT/HCPCS: 36415; 81003; 82436; 87086; Q2036